=== PATIENT | female | born 1940 | race Caucasian/White ===

== ENCOUNTER 2023-09-25 14:08 | Outpatient (CLI) | payer MEDICARE, BC, SELFPAY ==
--- NOTE | ~2023-09-25 | MM_ITS ---
EXAMINATION: MM screening natalie BI w brain HISTORY: Screening TECHNIQUE: Craniocaudal and mediolateral oblique 3-D tomosynthesis images were obtained and synthetic 2-D images were generated. CAD analysis was submitted and interpreted. COMPARISON: No prior mammogram is available for comparison at this institution. BREAST PARENCHYMAL COMPOSITION: Not dense: There are scattered areas of fibroglandular density. FINDINGS: There is no evidence of suspicious mass, calcification, or architectural distortion to sugg est malignancy in either breast. There has been no suspicious interval change. IMPRESSION: 1. No mammographic evidence of malignancy. 2. Recommend routine screening mammography in one year. BI-RADS Category 1: Negative Reviewed, dictated and finalized at location B.
== END 2023-09-25 14:09 ==
DX: Z12.31 Encounter for screening mammogram for malignant neoplasm of breast (principal)
CPT/HCPCS: 77063; 77067

== ENCOUNTER 2023-12-08 19:12 | Emergency (ER) | payer MEDICARE, SELFPAY ==
--- NOTE | ~2023-12-08 | XR_ITS ---
XR ankle RT min 3V Ordering provider: Baldo Delarosa MD History: . fall . Comparison: None. FINDINGS: BONES: No acute fracture or dislocation. JOINT SPACES: Narrowing of the ankle joint. SOFT TISSUES: Soft tissue swelling over the medial malleolus. IMPRESSION: No acute osseous abnormality of the right ankle. Reviewed, dictated and finalized at location A.
--- NOTE | ~2023-12-08 | CT_ITS ---
CT brain wo con Ordering provider: Baldo Delarosa MD History: 82 years Female with . fall . Comparison: None. Technique: CT of the head without contrast. Radiation reduction technique utilized The dose-length product was 681 mGy-cm. FINDINGS: BRAIN PARENCHYMA AND CSF SPACES: Mild leukoaraiosis and diffuse cortical atrophy. Mild atheromatous d isease. No midline shift, mass effect or hemorrhage. The brain parenchyma and CSF spaces are otherwi se normal. VISUALIZED PARANASAL SINUSES: Well aerated. MASTOIDS: Sclerotic both mastoids. BONES: The bones appear intact. SOFT TISSUES: Visualized nasopharynx is normal. Scalp hematoma in the right occipital area is noted. Otherwise, the superficial soft tissues are normal. IMPRESSION: No acute intracranial findings. Reviewed, dictated and finalized at location A.
--- NOTE | ~2023-12-08 | XR_ITS ---
XR tibia fibula RT 2V Ordering provider: Baldo Delarosa MD History: . fall . Comparison: None. FINDINGS: BONES: No acute fracture or dislocation. JOINT SPACES: Total knee arthroplasty. SOFT TISSUES: Normal. IMPRESSION: No acute osseous abnormality right leg. Reviewed, dictated and finalized at location A.
[2023-12-08 19:16] VITALS: BP 153/56; PULSE 80; RESP 16; TEMP 36.8; O2SAT 98
[2023-12-08 19:39] VITALS: BP 157/40; PULSE 77; RESP 18; TEMP 36.7; O2SAT 97
--- NOTE | 2023-12-08 19:54 | ED.FALL ---
HPI - Fall General Chief Complaint: Fall Stated Complaint: fall, R ankle pain, head injury Time Seen by Provider: 12/08/23 19:48 History of Present Illness HPI Narrative: 82-year-old female with history of chronic kidney disease and chronic cardiac disease on blood thinners of some sort according to the patient. Presents to the emergency department today after a ground level mechanical fall. She fell backwards while hugging her great grandchild. Fell backwards onto her right side head and did not lose consciousness. At the same time something landed onto her right lower leg and is having pain in her ankle. Endorses chronic bilateral lower extremity swelling but there is some more bruising appreciated in the right ankle at this time. Normally ambulatory in a wheelchair. Denies any headache, vision change, nausea, vomiting, loss consciousness, back pain, chest pain, shortness a breath. No weakness fatigue and she is able to move both her ankles equally. Related Data Allergies Allergy/AdvReac Type Severity Reaction Status Date / Time codeine Allergy Rash Verified 12/08/23 19:14 Sulfa (Sulfonamide Allergy Rash Verified 12/08/23 19:14 Antibiotics) Review of Systems Review of Systems: As reviewed above Exam Narrative: GENERAL: [Well-appearing, well-nourished, and in no acute distress.] HEAD: Normocephalic but there is a scalp hematoma on the posterior right-sided occipital region. No active bleeding or skin abrasion, no wound identified. EYES: [PERRLA and EOMI.] ENT: Nares clear, no rhinorrhea or epistaxis. Mucous membranes moist. NECK: Supple. CHEST: [Clear to auscultation. No respiratory distress.] HEART: [Regular rate and rhythm]. No murmur heard. [Normal peripheral pulses.] ABDOMEN: [Soft, nondistended], [nontender], [No rigidity or guarding] EXTREMITIES: Peripheral edema at baseline, right ankle around the medial aspect of the distal tib-fib region has some bruising. Full range of motion with plantar and dorsiflexion eversion and eversion of the ankle. Symmetric strength throughout both arms and legs. No midline cervical thoracic or lumbar spinal tenderness. SKIN: Warm, dry, no rash. NEURO: [No focal deficits]. Alert and oriented [x3.] PSYCH: [Normal mood and affect.] Course Vital Signs Vital signs: Vital Signs Temperature 36.8 C 12/08/23 19:16 Pulse Rate 80 12/08/23 19:16 Respiratory Rate 16 12/08/23 19:16 Blood Pressure 153/56 H 12/08/23 19:16 Pulse Oximetry 98 12/08/23 19:16 Oxygen Delivery Room Air 12/08/23 19:16 Temperature 36.7 C 12/08/23 19:39 Pulse Rate 77 12/08/23 19:39 Respiratory Rate 18 12/08/23 19:39 Blood Pressure 157/40 H 12/08/23 19:39 Pulse Oximetry 97 12/08/23 19:39 Oxygen Delivery Room Air 12/08/23 19:39 MDM - Fall MDM Narrative Medical decision making narrative: 82-year-old female presenting after a ground level mechanical fall on blood thinners. She did hit her head and has a hematoma on the right posterior aspect of her scalp that is not active bleeding or has any skin breakdown. She also had something landed onto her ankle when this happened. She normally walks with a wheelchair. Vital signs reassuring, cardiovascular assessment with good symmetric pulses throughout, chronic edema noted, bruising pre she in the distal right ankle. Full range of motion of the ankle joint. Patient denies any pain at this time and has no symptoms at this time. CT of the head was obtained given that she is on blood thinners and x-rays of the right tib-fib and ankle were obtained. X-rays were independently reviewed by myself I do not appreciate any fractures dislocations subluxations. No soft tissue injury aside from minor swelling obvious on external exam. CT head was interpreted by radiology with no intracranial process. Patient was re-evaluated no pain. She is stable for discharge at this time was provided an Carlos wrap for support. She normally
== END 2023-12-08 21:27 | disposition home or self-care (01) ==
PROVIDERS: Emergency Provider Student in an Organized Health Care Education/Training Program
DX: S09.90XA Unspecified injury of head, initial encounter (principal); S90.01XA Contusion of right ankle, initial encounter; W18.30XA Fall on same level, unspecified, initial encounter
CPT/HCPCS: 70450; 73590; 73610; 99284

== ENCOUNTER 2024-05-07 07:27 | Inpatient (IN) | payer MEDICARE, SELFPAY ==
[2024-05-07] VITALS (15 sets, daily range): BP systolic 96–128; BP diastolic 38–71; PULSE 70–100; RESP 11–20; TEMP 36.3–37.4; O2SAT 86–100; BMI 26.6
--- NOTE | ~2024-05-07 | CT_ITS ---
EXAMINATION: CT chest abdomen pelvis wo con DATE: 05/07/2024 10:39 INDICATION: Pneumonia. Sepsis. TECHNIQUE: Computed tomography (CT) of the chest, abdomen, and pelvis was performed without intraveno us contrast. Automated exposure control and iterative reconstruction technique were employed. The dos e-length product was 504.38 mGy-cm. COMPARISON: None FINDINGS: CHEST CT: The lungs demonstrate mild atelectasis. There is a 3 mm nodule in right upper lobe, likely benign. No pleural effusion. Cardiomegaly is noted. No pericardial effusion. There is a compression fracture of T10 with changes of vertebroplasty. There is mild thoracic spondylosis. ABDOMEN/PELVIS CT: The liver and spleen are normal. There are changes of cholecystectomy. The pancreas, adrenal glands, and kidneys are normal. There is no urolithiasis. There is diverticulosis of the colon without eviden ce of diverticulitis. The appendix is normal. There are no dilated loops of bowel. There are no patho logically enlarged lymph nodes. There is a 15 mm calcified mass at the root of the small bowel mesent delilah. There is a right inguinal hernia containing fat. There is a subcutaneous hematoma in right butto ck. There is an electrode in the right S3 neural foramen. There is a compression fracture of L1 witho ut significant height loss. There is mild lumbar spondylosis. IMPRESSION: 1. L1 compression fracture, likely acute or subacute. 2. 15 mm calcified mass at the root of the small bowel mesentery, which may be sclerosing mesenteriti s or carcinoid. 3. Subcutaneous hematoma in the right buttock. Reviewed, dictated and finalized at location B. IMPRESSION: 1. L1 compression fracture, likely acute or subacute. 2. 15 mm calcified mass at the root of the small bowel mesentery, which may be sclerosing mesenteritis or carcinoid. 3. Subcutaneous hematoma in the right buttock.
--- NOTE | ~2024-05-07 | XR_ITS ---
EXAMINATION: XR hip RT 2V w AP pelvis DATE: 05/07/2024 08:47 INDICATION: Right hip pain. Fall. TECHNIQUE: An anteroposterior view of the pelvis and 2 views of right hip were obtained. COMPARISON: None. FINDINGS: There is lumbar levocurvature and at least mild spondylosis. No fracture. There is mild ost eoarthritis of the hips. Electrode overlies the sacrum on the right. IMPRESSION: 1. Mild osteoarthritis of the hips. Reviewed, dictated and finalized at location B.
--- NOTE | ~2024-05-07 | XR_ITS ---
XR chest 1V Ordering provider: Lanre Dumont MD History: 83 years Female with . Fall . Comparison: None. FINDINGS: MEDIASTINUM: The cardiac silhouette is not enlarged. Congestive yuriy. LUNGS: No pneumothorax. Opacification in the left lung base seen suggestive of atelectasis versus pne umonia with pleural effusion. OTHER: No free air under the diaphragm. Vertebroplasty is seen in T10. Degenerative changes of the sp ine. IMPRESSION: Left basilar atelectasis versus pneumonia with pleural effusion. Reviewed, dictated and finalized at location A.
--- NOTE | ~2024-05-07 | CT_ITS ---
EXAMINATION: CT cervical spine wo con DATE: 05/07/2024 08:31 INDICATION: Neck injury. Fall. TECHNIQUE: Computed tomography (CT) of the cervical spine was performed without intravenous contrast. Automated exposure control and iterative reconstruction technique were employed. The dose-length pro duct was 180.18 mGy-cm. COMPARISON: None FINDINGS: Alignment is normal. Vertebral body heights are normal. There is severely decreased disc he ight at C2-C3. There is severely decreased disc height at C3-C4 with interbody fusion. There is sever steven decreased disc height at C4-C5, moderately decreased disc height at C5-C6, and severely decreased disc height at C6-C7. The following disc levels are specifically discussed: C2-C3: There is mild right and moderate left uncovertebral joint osteoarthritis. There is mild right and severe left facet joint osteoarthritis. There is mild left neural foraminal stenosis. There is no central canal stenosis. C3-C4: There is mild right and moderate left uncovertebral joint hypertrophy. There is mild bilateral facet joint hypertrophy. There is mild right and moderate left neural foraminal stenosis. There is m ild central canal stenosis. C4-C5: There is severe right and moderate left uncovertebral joint osteoarthritis. There is severe ri ght and mild left facet joint osteoarthritis. There is mild bilateral neural foraminal stenosis. Ther e is mild central canal stenosis. C5-C6: There is severe bilateral uncovertebral joint osteoarthritis. There is severe bilateral facet joint osteoarthritis. There is mild bilateral neural foraminal stenosis. There is mild central canal stenosis. C6-C7: There is severe bilateral uncovertebral joint osteoarthritis. There is moderate right and mild left facet joint osteoarthritis. There is mild bilateral neural foraminal stenosis. There is mild ce ntral canal stenosis. C7-T1: There is no uncovertebral joint osteoarthritis. There is severe right and mild left facet join t osteoarthritis. There is mild right neural foraminal stenosis. There is no central canal stenosis. IMPRESSION: 1. No fracture. 2. Severe cervical spondylosis. Reviewed, dictated and finalized at location B.
--- NOTE | ~2024-05-07 | CT_ITS ---
CT brain wo con Ordering provider: Lanre Dumont MD History: 83 years Female with . Fall on xarelto . Comparison: December 08, 2023 Technique: CT of the head without contrast. Radiation reduction technique utilized.The dose-length pr oduct was 605.33 mGy-cm. FINDINGS: BRAIN PARENCHYMA AND CSF SPACES: Mild leukoaraiosis and diffuse cortical atrophy. Mild atheromatous d isease. No midline shift, mass effect or hemorrhage. The brain parenchyma and CSF spaces are otherwi se normal. VISUALIZED PARANASAL SINUSES: Well aerated. MASTOIDS: Sclerotic both mastoid air cells. BONES: The bones appear intact. SOFT TISSUES: Visualized nasopharynx is normal. Superficial soft tissues are normal. IMPRESSION: No acute intracranial findings. Reviewed, dictated and finalized at location A.
--- OUTSIDE RECORDS SUMMARY | 2024-05-07 07:59 | XMS_ITS | Continuity of Care Document ---
Author Organization [facility] Address [address] [place] [address] Phone Care Team Providers Care Study Assistant Name Role Phone Reymundo JACKY Sy Unavailable Unavailable Allergies, Adverse Reactions, Alerts Substance Reaction Status Criticality tramadol Active No Information caffeine Active No Information blue dye Active No Information red dye Active No Information Sulfa (Sulfonamide Antibiotics) Unknown Active No Information Medications Medication Instructions Dosage Effective Dates (start - stop) Status Comments nabumetone 500 mg tablet take 1 tablet by oral route 2 times every day 500 MG - Active hydrocodone 5 mg-acetaminophen 325 mg tablet take 1 - 2 Tablet by Oral route every 8 hours - Active Sixty lisinopril 2.5 mg tablet - Active pravastatin 10 mg tablet - Active Calcium 500 500 mg calcium (1,250 mg) chewable tablet - Active potassium acetate (bulk) 100% powder - Active iron ER 159 mg (45 mg iron) tablet,extended release - Active melatonin 1 mg tablet - Active Procedures Procedure Date Knee Xray 3 Views Office/outpatient visit,est, mod 2022 Knee Xray 3 Views Postop followup visit Postop followup visit Knee Xray 3 Views Postop followup visit Knee Xray 3 Views Knee Total Arthroplasty Arthroplasty, Total Knee Office/outpatient visit,est, mod 2022 Knee Xray 3 Views Office/outpatient visit,est, mod 2018 Postop followup visit Percutaneous Vertebral Augmentation Incl udbettie Cavi Office/outpatient visit,new, mod 2018 Office/outpatient visit,est, mod 2012 X-ray exam of knee, 3 views Office/outpatient visit,new, mod 2012 Drain/Inj Major Joint/Bursa(Shldr, Hip, Knee, Subacrom Bursa) Decadron Advance Directives Directive Yes / No Effective Date File Name No Information Encounters Encounter Description Practice Location Reason(s) For Visit Diagnoses Date Provider Providers Copied on Encounter Office/outpa tient visit,est, mod [facility], [address] [place] [address], [id number], tel:[phone] [facility] knee (chief complaint) Pain in right kneeBody mass index (BMI) 31.0-31.9, adultEncounter for exam of blood pressure w/o abnormal findingsPresence of right artificial knee joint Oct- 3 Reymundo Dan. [address] [place] [address], [id number] , [place]. tel:[phone] Referring Provider: Sy Dwyer, [address] [place], [address] . tel:[phone] [facility], [address] [place] [address], [id number], tel:[phone] [facility] No Information 3 Reymundo Dan. [address] [place] [address], [id number] , [place]. tel:[phone] Referring Provider: Ramin Bowman, [address] [place] [address], [id number] . tel:[phone] [facility], [address] [place] [address], [id number], tel:[phone] [facility] ankle (chief complaint) Presence of right artificial knee joint 3 Reymundo Dan. [address], [place], [id number] , . tel:[phone] Referring Provider: Sy Dwyer, [address] [place], [address] . tel:[phone] [facility], [address] [place] [address], [id number], tel:[phone] [facility] knee (chief complaint) Postoperative wound infection 3 Reymundo Dan. [address], [place], [id number] , [place]. tel:[phone] Referring Provider: Sy Dwyer, [address] [place], [address] . tel:[phone] [facility], [address] [place] [address], [id number], tel:[phone] [facility] No Information 3 Jairo Faustin. [address] [place] [address], [id number] , [place]. tel:[phone] [facility], [address] [place] [address], [id number], [place] tel:[phone] [facility] knee (chief complaint) Pain in right kneeStatus post total right knee replacement 3 Reymundo Dan. [address], [place], [id number] , . [phone] Referring Provider: Sy Dwyer, [address] [place], [address] . tel:[phone] [facility], [address] [place] [address], [id number], [place] tel:[phone] [facility] No Information 3 Reymundo Sy. [address] [place] [address], [id number] , . tel:[phone] Referring Provider: Ramin Bowman, [address] [place], [address] . tel:[phone] [facility], [address] [place] [address], [id number], tel:[phone] [facility] No Information 3 Jairo Faustin. [address] [place] [address], [id number] , . tel:[phone] Referring Provider: Ramin Bowman, [address] [place] [address], [id number] . tel:[phone] [facility], [address] [place] [address], [id number], tel:[phone] [facility] No Information 3 Reymundo Dan. [address] [place] [address], [id number] , . tel:[phone] Referring Provider: Ramin Bowman, [address] [place] [address], [id number] . tel:[phone] [facility], [address] [place] [address], [id number], tel:[phone] [facility] Primary osteoarthritis of right knee 3 Jairo Faustin. [address] [place] [address], [id number] , [place]. tel:[phone] Office/outpa tient visit,est, mod [facility], [address] [place] [address], [id number], tel:[phone] [facility] knee (chief complaint) Primary osteoarthritis of right kneePain in right knee Apr- 3 Reymundo Dan. [address] [place] [address], [id number] , [place]. tel:[phone] Referring Provider: Sy Dwyer, [address] [place] [address], [id number] . tel:[phone] Office/outpa tient visit,est, mod [facility], [address] [place] [address], [id number], tel:[phone] [facility] lumbar spine (chief complaint) Closed compression fracture of thoracic vertebra, 9 Vimal Villasenor. [address], [place], [id number] , . tel:[phone] [facility], [address] [place] [address], [id number], tel:[phone] [facility] lumbar spine (chief complaint) Closed compression fracture of thoracic vertebra, May-0 9 Vimal Villasenor. [address], [place], [id number] , . tel:[phone] [facility], [address] [place] [address], [id number], tel:[phone] [facility] No Information 9 Vimal Villasenor. [address], [place], [id number] , . tel:[phone] Referring Provider: Hamilton Riley, [address] [place] [address], [id number] . tel:[phone] Office/outpa tient visit,[facility], [address] [place] [address], [id number], tel:[phone] [facility] thoracic spine pain (chief complaint) Midline low back pain, with sciatica presence unspecifiedClosed compression fracture of thoracic vertebra, initial encounterClosed compression fracture of thoracic vertebra,Closed compression fracture of thoracic vertebra,Closed compression fracture of thoracic vertebra,Closed compression fracture of thoracic vertebra,Encounte r for other preprocedural examinationCollap sed vertebra of thoracic region, initial encounter for fracture 9 Rubén Strickland. [address] [place] [address], [id number] , [place]. tel:[phone] Office/outpa tient visit,[facility], [facility], [address] [place] [address], [id number], tel:[phone] [facility] Arthritis Knee Localized Primary (osteoarthritis)M ed Meniscus/Derang(O ld) - Unspecified 3 Marco A goins. [address] [place] [address], [id number], [place]. tel:[phone] Office/outpa tient visit,new, [facility], [address], [place], [id number], tel:[phone] [facility] Pain In LimbArthritis Knee Localized Primary (osteoarthritis) 3 Marco A Ojeda briseida. [address] [place], [address], . tel:[phone] Referring Provider: Avinash Adrian, [address] [place], [address] . tel:[phone] Family History Family Member Type Diagnosis Age At Onset Problem (finding) Family history of coronary arteriosclerosis Problem (finding) Family history of strok e Problem (finding) Family history of Cance r, unknown Payers Payer name Insurance type Covered constitution party ID Authoriza tion(s) [place] [id number] BCBS [facility] [id number] Social History Type Description Quantity Date Captured Comments Alcohol Use Details Unknown Caffeine Use Details Unknown Tobacco Use Status Current non-smoker Smoking Status Never smoker Non-Smoking Tobacco Use Details : No Details Available : No Details Available Sex Female Vital Signs Date / Time: Height Weight BMI Pulse Rate Blood Pressure Temperature Respiratory Rate Body Surface Area Head Circumference Head Circ. Percentile Wt./Seamus. Percentile BMI percentile Pulse Ox Inhaled Ox 2:48 PM 62.00 in 78.925 kg (174.00 lbs) 31.8 2 kg/m eter (2) 83 /min 81/50 mm[Hg] Chief Complaint And Reason For Visit From encounter dated '11/03/2022 14:00'. knee (chief complaint) Reason For Referral Reason For Referral No Information Plan Of Treatment Date Type Action Status Goal Tobacco cessation counseling completed Goal Tobacco cessation counseling completed Goal Tobacco cessation counseling completed Goal Tobacco cessation counseling completed Goal Tobacco cessation counseling completed Goal Tobacco cessation counseling completed Future Order: Radiology Order Kn ee Xray 3 Views ([id number]), Ordered on: Ordered Future Order: Radiology Order Kn ee Xray 3 Views ([id number]), Ordered on: Ordered Future Order: Radiology Order Kn ee Xray 3 Views ([id number]), Ordered on: Ordered History Of Present Illness Encounter Date Complaint History Of Prese nt Illness knee ankle knee knee knee lumbar spine Ms Delong is a 8 6 year old female who complains of lumbar spine. She presents with pain. She states that the symptoms have been chronic non-traumatic. The symptoms occur constantly. The problem is worse. Currently the patient states that the symptoms are moderate-severe. The pain is described as aching, discomforting and throbbing. The patient is experiencing pain in the following location: lower back. The symptoms are aggravated by daily activities, extension, flexion and walking. Dianne states that the symptoms are relieved by rest and sitting. lumbar spine Ms Delong is a 8 6 year old female who complains of lumbar spine. She presents with pain. She states that the symptoms have been chronic non-traumatic. The symptoms occur constantly. The problem is worse. Currently the patient states that the symptoms are moderate-severe. The pain is described as aching, discomforting and throbbing. The patient is experiencing pain in the following location: lower back. The symptoms are aggravated by daily activities, extension, flexion and walking. Dianne states that the symptoms are relieved by rest and sitting. thoracic spine pain She presents with pain. She states that the symptoms have been chronic non-traumatic. The symptoms occur constantly. The problem is worse. Currently the patient states that the symptoms are severe. The pain is described as aching, burning and shooting. The patient is experiencing pain in the following location: mid back. The symptoms are aggravated by lifting. Dianne states that the symptoms are relieved by lying down. Pertinent negatives include bladder, bowel, or sexual dysfunction. Functional Status Date Functional Assessmen t No Information Instructions Date Instruction Additional Infor steven Giving encouragement to exercise Related to Blood pressure check Giving encouragement to exercise Related to Body mass index [BMI] 31.0-31.9, adult Assessments Type Assessment Date assessment Pain in right knee assessment Body mass index [BMI] 31.0-31.9, adult assessment Blood pressure check assessment Presence of right artificial kne e joint Patient Care Teams Name Effective Dates (start - stop) Status Members No Information
--- OUTSIDE RECORDS SUMMARY | 2024-05-07 07:59 | XMS_ITS | Referral Summary ---
Author Organization [facility] [address] [facility] [address] Address [address] [place] [address] Care Team Providers Care Mobility Scooter Repairer Name Role Phone Amalia Leyva NP Primary Care Pro vider Encounters Date Type Department Care Team Description 02/15/2024 10:30 AM HOBBING MACHINE OPERATOR Office Visit [facility] [address] [place] [address] Daiana Hearn NP Paroxysmal atrial fibrillation (HCC) (Primary Dx); Chronic anticoagulation from Last 3 Months Allergies Active Allergy Reactions Criticality Noted Date Comments Codeine Rash Medium 08/18/2023 Medications FeroSuL 325 mg (65 mg iron) tablet 08/03/2023 Active furosemide (LASIX) 40 mg tablet 07/24/2023 Active metoprolol XL (TOPROL-XL) 25 mg extended release tablet 08/14/2023 Acti ve nabumetone (RELAFEN) 750 mg tablet 08/17/2023 Active pravastatin (PRAVACHOL) 10 mg tablet 08/08/2023 Active triamterene-hyd roCHLOROthiazid e 37.5-25 mg per capsule TAKE 1 CAPSULE BY MOUTH ONCE DAILY IN THE MORNING 05/15/2023 Active rivaroxaban (XARELTO) 20 mg tablet Take 1 tablet (20 mg total) by mouth daily with dinner 30 tablet 11 09/28/2023 Active bumetanide (BUMEX) 1 mg tablet 02/13/2024 Active calcium amino acid chelate 200 mg calcium tablet Take by mouth Active potassium gluconate 550 mg (90 mg) tablet 1 tablet (550 mg total) Active aspirin 81 mg enteric coated tablet Take 1 tablet (81 mg total) by mouth daily Active loratadine (CLARITIN) 10 mg tablet Take 1 tablet (10 mg total) by mouth daily Active Active Problems Problem Noted Date Diagnosed Date Palpitations 08/18/2023 Hypertension 08/18/2023 Hyperlipidemia 08/18/2023 Social History Tobacco Use Types Packs/Day Years Used Date Smoking Tobacco: Never Tobacco Cessation:Counseling Given: Not Answered Comments Unknown Sex and Gender Information Value Date Recorded Sex Assigned at Not on file Legal Sex Female 11:32 AM CDT Gender Identity Not on file Sexual Orientation Not on file Last Filed Vital Signs Vital Sign Reading Time Taken Comments Blood Pressure 118/60 02/15/2024 10:40 AM HOBBING MACHINE OPERATOR Pulse 88 02/15/2024 10:40 AM HOBBING MACHINE OPERATOR Temperature - - Respiratory Rate - - Oxygen Saturation 98% 02/15/2024 10:40 AM HOBBING MACHINE OPERATOR Inhaled Oxygen Concentration - - Weight 66.2 kg (146 lb) 02/15/2024 10:40 AM HOBBING MACHINE OPERATOR Height 154.9 cm (5' 1) 02/15/2024 10:40 AM HOBBING MACHINE OPERATOR Body Mass Index 27.59 02/15/2024 10:40 AM HOBBING MACHINE OPERATOR Plan of Treatment Not on file Insurance MEDICARE [facility] MEDICARE SUPPLEMENT Care Teams Mobility Scooter Repairer Relationship Specialty Start Date End Date Amalia Leyva NP [address] [place] [address] PCP - General Nurse Practitioner 06/05/23
--- OUTSIDE RECORDS SUMMARY | 2024-05-07 07:59 | XMS_ITS | Clinical Summary ---
Author Organization [facility] [address] Address [address] [place] [address] Care Team Providers Care Hospice Nurse Name Role Phone Amalia Leyva NP Primary Care Pro vider Allergies Active Allergy Reactions Criticality Noted Date [...] Date Palpitations 08/18/2023 Hypertension 08/18/2023 Hyperlipidemia 08/18/2023 Encounters Date Type Department Care Team Description 02/15/2024 10:30 AM OVERAGE SHORTAGE AND DAMAGE CLERK Office Visit [facility] Cardiology [address] [place] [address] Daiana Hearn NP Paroxysmal atrial fibrillation (HCC) (Primary Dx); Chronic anticoagulation from Last 3 Months Surgical History Surgery Date Site/Laterality Comments CHOLECYSTECTOMY TONSILLECTOMY Medical History Medical History Date Comments CHF (congestive heart failure) (HCC) Family History Medical History Relation Name Comments Emphysema Father Stroke Mother Relation Name Status Comments Father Mother Social History Tobacco Use Types Packs/Day Years Used Date Smoking Tobacco: Never Tobacco Cessation:Counseling Given: Not Answered Comments Unknown Sex and Gender Information Value Date Recorded Sex Assigned at Not on file Legal Sex Female 11:32 AM CDT Gender Identity Not on file Sexual Orientation Not on file Obstetrics History Last Filed Vital Signs Vital Sign Reading Time Taken Comments Blood Pressure 118/60 02/15/2024 10:40 AM OVERAGE SHORTAGE AND DAMAGE CLERK Pulse 88 02/15/2024 10:40 AM OVERAGE SHORTAGE AND DAMAGE CLERK Temperature - - Respiratory Rate - - Oxygen Saturation 98% 02/15/2024 10:40 AM OVERAGE SHORTAGE AND DAMAGE CLERK Inhaled Oxygen Concentration - - Weight 66.2 kg (146 lb) 02/15/2024 10:40 AM OVERAGE SHORTAGE AND DAMAGE CLERK Height 154.9 cm (5' 1) 02/15/2024 10:40 AM OVERAGE SHORTAGE AND DAMAGE CLERK Body Mass Index 27.59 02/15/2024 10:40 AM OVERAGE SHORTAGE AND DAMAGE CLERK Plan of Treatment Health Maintenance Due Date Last Done Comments Depression Screening 1941 Fall Risk Assessment 1941 Osteoporosis Screening-Bone Density Scan 1941 Hepatitis B Screening 12/26/1959 Pneumococcal vaccine 65+ (1 of 1 - PCV) 12/26/1991 Zoster Vaccine (1 of 2) 12/26/1991 Well Visit 65+ 2006 DTaP/Tdap/Td Vaccine (2 - Td or Tdap) 10/03/202307/2013 Influenza Vaccine (#1) 2023 Insurance MEDICARE [facility] MEDICARE SUPPLEMENT Member Subscriber Plan / Payer (Ef fective 2020-Present) Name:Dianne Delong Relation to Subscriber:Self Name:Dianne Delong Payer ID:[id number] Group ID:[id number] Type:COMMERCIAL Address: [facility] [address] [place] [id number] Care Teams Hospice Nurse Relationship Specialty Start Date End Date Amalia Leyva NP [address] [place] [address] PCP - General Nurse Practitioner 06/05/23
--- NOTE | 2024-05-07 08:16 | ECG_ITS ---
Test Date: 2024-05-07 08:56:36 Measurements Intervals [place] Rate: 93 P: 255 WY: 340 QRS: -26 QRSD: 95 T: 47 QT: 383 QTc: 479 Interpretive Statements SINUS RHYTHM BORDERLINE LEFT AXIS DEVIATION [QRS AXIS < -20] LOW QRS VOLTAGE IN PRECORDIAL LEADS [QRS DEFLECTION < 1.0 mV IN CHEST LEADS] INCOMPLETE RIGHT BUNDLE BRANCH BLOCK [90+ ms QRS DURATION, TERMINAL R IN V1/V2, 40+ ms S IN I/aVL/V4/V5/V6] ST DEVIATION AND MODERATE T-WAVE ABNORMALITY, CONSIDER ANTERIOR ISCHEMIA [-0.1+ mV T WAVE IN V3/V4] No previous ECG available for comparison Electronically Signed On 05-07-2024 14:56:23 CDT by Martell Palomo M.D.
--- NOTE | 2024-05-07 08:31 | PCRCNOTE ---
[facility] delayed pt in xray and Cat Scan
[2024-05-07] MEDS: HYDROcodone/acetaminophen (*CRX) 5-325 MG TABLET 1 TAB PO (08:45)
[2024-05-07 09:05] LABS: Basophils Percent Auto 0.3 % (0.2-1.2); Eosinophils Absolute Auto 0.7 K/mm3 (0-0.3); Hematocrit 32.6 % (37.0-47.0); Hemoglobin 10.5 g/dL (12.0-15.0); Immature Granulocyte Absolute 0.11 K/mm3 (0.00-0.031); Immature Granulocyte Percent A 0.8 % (0-0.5); Lymphocytes Percent Auto 2.8 % (18.3-44.2); Mean Corpuscular HGB Conc 32.2 g/dl (32-36); Mean Corpuscular Hemoglobin 27.9 pg (26-34); Mean Corpuscular Volume 86.5 fl (80-100); Mean Platelet Volume 10.2 fl (7.4-10.4); Monocytes Absolute Auto 0.6 K/mm3 (0.1-0.6); Monocytes Percent Auto 4.2 % (2.6-8.5); Neutrophils Absolute Auto 12.5 K/mm3 (1.3-6.7); Neutrophils Percent Auto 86.9 % (45.5-73.1); Platelet Count Result 361 k/mm3 (150-375); Red Blood Count 3.77 M/mm3 (4.2-5.4); Red Cell Distribution Width 13.5 % (11.5-14.5); White Blood Count 14.4 K/mm3 (4.5-10.0)
[2024-05-07 09:14] LABS: Fractional Inspired Oxygen 21 %; HCO3 VBG 29.8 mEq/l (24.0-30.0); PCO2 VBG 44.4 mmHg (42.0-48.0)
[2024-05-07 09:17] LABS: Device ROOM AIR; PO2 VBG < 27.0 mmHg (35.0-45.0); pH VBG 7.445 (7.300-7.400)
[2024-05-07 09:18] LABS: Lactic Acid Reflex 1.2 mmol/L (0.7-2.0)
[2024-05-07 09:19] LABS: Alanine Aminotransferase 28 U/L (6-35); Albumin Level 4.3 g/dL (3.5-5.1); Alkaline Phosphatase 132 U/L (38-126); Anion Gap 10 mmol/L (4-12); Aspartate Amino Transferase 40 U/L (14-36); Bilirubin,Total 0.7 mg/dL (0.2-1.3); Blood Urea Nitrogen 64 mg/dL (7-17); Calcium 9.7 mg/dL (8.4-10.2); Carbon Dioxide 34 mmol/L (22-30); Chloride 94 mmol/L (98-107); Estimated CRCL calculation 15 ml/min; Estimated Glomerular Filt Rate 19; Glucose 151 mg/dL (65-110); Potassium 3.3 mmol/L (3.4-5.0); Sodium 138 mmol/L (137-145)
[2024-05-07 09:40] LABS: Influenza A QL RT-PCR Negative (Negative); Influenza B QL RT-PCR Negative (Negative); RSV RNA, RT-PCR Negative (Negative); SARS-CoV-2 RNA PCR Negative (Negative)
[2024-05-07 09:50] LABS: Add Urine Microscopic? YES; Appearance Urine Cloudy (Clear); Bacteria Urine 1+ /hpf; Bilirubin Urine 1+ (Negative); Blood Urine 3+ (Negative); Color Urine Dark Yellow (Yellow); Glucose Urine UA Negative (Negative); Ketones Urine Trace mg/dL (Negative); Leukocyte Esterase Ur 1+ LEU/UL (Negative); Need Manual Microscopic Reviewed; Nitrate Urine Negative (Negative); Protein Urine Trace mg/dL (Negative); RBC Urine 21-50 /hpf (0-2); Specific Grav Ur 1.016 (1.001-1.035); Squamous Epithelial Cell Urine Many /hpf (Few); Urobilinogen Urine 0.2 mg/dL (<2.0)
--- NOTE | 2024-05-07 13:16 | ED_ITS ---
HPI - General Adult General Chief complaint: Fall Stated complaint: glf, R shoulder pain History of Present Illness HPI narrative: This is an 83-year-old female presenting after a ground level fall. Patient was trying to use the restroom when she fell forward when her walker slipped away. He is unsure if she had but she denies loss of consciousness. She is on Xarelto. She is currently complaining of pain to her right hip, and both knees. She says she has felt more weak than usual the last 2 days. She denies fevers chills chest pain difficulty breathing abdominal pain or urinary symptoms. She has recently completed treatment for UTI. Related Data Allergies Allergy/AdvReac Type Severity Reaction Status Date / Time codeine Allergy Rash Verified 12/08/23 19:14 Sulfa (Sulfonamide Allergy Rash Verified 12/08/23 19:14 Antibiotics) Exam 2 Narrative: APPEARANCE: No apparent distress. Head: atraumatic. EYES: EOMI, NOSE: Atraumatic NECK: Trachea midline RESPIRATORY: No increased rate of breathing clear to auscultation CARDIOVASCULAR: RRR, no peripheral edema, +2 pulses in all extremities ABDOMINAL: Non-distended soft nontender no guarding or rebound MUSCULOSKELETAl: Head to toe trauma exam performed with no obvious deformities. No pain in the hips with flexion and internal external rotation. Tenderness palpation in the lumbar region. NEURO: Alert. Moving 4/4 extremities SKIN:: Warm, dry. Normal color PSYCHIATRIC: Normal affect Course Vital Signs Vital signs: Vital Signs Temperature 97.9 F 05/07/24 07:31 Pulse Rate 100 05/07/24 07:31 Respiratory Rate 16 05/07/24 07:31 Blood Pressure 128/71 05/07/24 07:31 Pulse Oximetry 94 05/07/24 07:31 Oxygen Delivery Room Air 05/07/24 07:31 Temperature 97.9 F 05/07/24 07:31 Pulse Rate 74 05/07/24 12:00 Respiratory Rate 14 05/07/24 12:00 Blood Pressure 104/66 05/07/24 12:00 Pulse Oximetry 96 05/07/24 12:00 Oxygen Delivery Nasal Cannula 05/07/24 11:41 Oxygen Flow Rate 2 05/07/24 11:41 Medical Decision Making [facility] Narrative Medical decision making narrative: -Course: 83-year-old female presenting after ground level fall. Trauma workup significant for a mild acute versus subacute L1 compression fracture. Patient's neurologic exam is normal. She does have some mild back pain but is able to move without difficulty. Hematoma in the right buttock which likely explains her hip pain. White count was elevated 14.4. Workup was expanded to include infectious causes of fall. Chest x-ray showed left basilar infiltrates versus atelectasis. Urine was a contaminated catch with many squamous cells. I recommended straight cath to rule out urinary tract infection and the patient and her family members refused. They understand that if she has a urinary tract infection she could become septic which is a life-threatening condition. Both the patient and her son have voiced their understanding of the risks. We were planning on discharging the patient back to the [facility], However before the patient was discharged I ambulated her around the emergency department to make sure that she could tolerate her back pain. During that time she desaturated into the mid 80s. She was incredibly winded by time she was helped back to bed by the nursing staff. Given her elevated white count, difficulty breathing and possible infiltrates on x-ray/CT should be started on antibiotics will cover both pneumonia and urinary tract infection. Patient admitted for further management. There was incidental finding of a calcified nodule at the base of the small bowel mesentery. Differential including mesenteric scleritis versus carcinoid. I discussed this with the patient and family and patient has no interest in being further evaluated for cancer. No abdominal pain or GI sxs. -DDX includes but is not limited to: Soft tissue injury bony injury, intracranial hemorrhage, sepsis UTI pneumonia dehydration -Co-morbidities complicating care: AFib on Xarelto, CKD stage IV -Social determinants of health: intermediate resident Vital Signs Vital Signs: Vital Signs Temperature 97.9 F 05/07/24 07:31 Pulse Rate 100 05/07/24 07:31 Respiratory Rate 16 05/07/24 07:31 Blood Pressure 128/71 05/07/24 07:31 Pulse Oximetry 94 05/07/24 07:31 Oxygen Delivery Room Air 05/07/24 07:31 Temperature 97.9 F 05/07/24 07:31 Pulse Rate 74 05/07/24 12:00 Respiratory Rate 14 05/07/24 12:00 Blood Pressure 104/66 05/07/24 12:00 Pulse Oximetry 96 05/07/24 12:00 Oxygen Delivery Nasal Cannula 05/07/24 11:41 Oxygen Flow Rate 2 05/07/24 11:41 Lab Data 05/07/24 08:57 05/07/24 08:57 Labs: Lab Results 05/07/24 05/07/24 Range/Units 08:57 09:26 WBC 14.4 H (4.5-10.0) K/mm3 RBC 3.77 L (4.2-5.4) M/mm3 Hgb 10.5 L (12.0-15.0) g/dL Hct 32.6 L (37.0-47.0) % MCV 86.5 (80-100) fl MCH 27.9 (26-34) pg MCHC 32.2 (32-36) g/dl RDW 13.5 (11.5-14.5) % Plt Count 361 (150-375) k/mm3 MPV 10.2 (7.4-10.4) fl Immature Gran % (Auto) 0.8 H (0-0.5) % Neut % (Auto) 86.9 H (45.5-73.1) % Lymph % (Auto) 2.8 L (18.3-44.2) % Cataño % (Auto) 4.2 (2.6-8.5) % Eos % (Auto) 5.0 H (0-4.4) % Baso % (Auto) 0.3 (0.2-1.2) % Lymph # (Auto) 0.40 L (0.9-3.2) K/mm3 [place]ata[place] # (Auto) 0.6 (0.1-0.6) K/mm3 Eos # (Auto) 0.7 H (0-0.3) K/mm3 Baso # (Auto) 0.0 (0.0-0.1) K/mm3 Abs Immat Gran (auto) 0.11 H (0.00-0.031) K/mm3 Absolute Neuts (auto) 12.5 H (1.3-6.7) K/mm3 Absolute Nucleated RBC 0.000 (0.0-0.012) K/mm3 Nucleated RBC % 0.0 (0.0-0.2) % Sodium 138 (137-145) mmol/L Potassium 3.3 L (3.4-5.0) mmol/L Chloride 94 L (98-107) mmol/L Carbon Dioxide 34 H (22-30) mmol/L Anion Gap 10 (4-12) mmol/L BUN 64 H (7-17) mg/dL Creatinine 2.43 H (0.7-1.0) mg/dL Estim Creat Clear Calc 15 ml/min Estimated GFR 19 L (59 - ) Glucose 151 H (65-110) mg/dL Lactic Acid 1.2 (0.7-2.0) mmol/L Calcium 9.7 (8.4-10.2) mg/dL Total Bilirubin 0.7 (0.2-1.3) mg/dL AST 40 H (14-36) U/L ALT 28 (6-35) U/L Alkaline Phosphatase 132 H (38-126) U/L Total Protein 8.0 (6.3-8.2) g/dL Albumin 4.3 (3.5-5.1) g/dL Urine Color Dark yellow (Yellow) Urine Appearance Cloudy H (Clear) Urine pH 5.0 (5.0-9.0) Ur Specific [place] 1.016 (1.001-1.035) Urine Protein Trace (Negative) mg/dL Urine Glucose (UA) Negative (Negative) mg/dL Urine Ketones Trace H (Negative) mg/dL Ur Blood (Man) 3+ H (Negative) Urine Nitrate Negative (Negative) Urine Bilirubin 1+ H (Negative) Urine Urobilinogen 0.2 (<2.0) mg/dL Add Ur Microanalysis Reviewed Leukocyte Esterase Rfl 1+ H (Negative) SWAPNA/UL Urine RBC 21-50 H (0-2) /hpf Urine WBC 11-20 H (0-3) /hpf Ur Squamous Epith Cells Many H (Few) /hpf Urine Bacteria 1+ H /hpf Urine Casts 11-20 Influenza A (RT-PCR) Negative (Negative) Influenza B (RT-PCR) Negative (Negative) RSV (RT-PCR) Negative (Negative) SARS-CoV-2 RNA (RT-PCR) Negative (Negative) ABG Data ABG results: 05/07/24 09:11 VBG pH 7.445 H* VBG pCO2 44.4 VBG pO2 < 27.0 L VBG HCO3 29.8 O2 Delivery Device Room air O2 Liters/Min Not Reportable FiO2 21 Discharge Plan Discharge Clinical Impression: Fall, Hematoma, Compression fracture of L1 vertebra, Hypoxia Patient Disposition: Home, Self-Care Condition: Stable Instructions: Antibiotic Form, Vertebral Compression Fracture (ED) Additional Instructions: Dianne was seen after a fall. She has a mild L1 compression fracture. She can take Tylenol for pain. Use oxycodone for breakthrough pain.. Please continue to monitor for signs of urinary tract infection. She refused to let us straight catheter and we were unable to get a adequate sample. She was incidentally found to have a calcified mass in her mesentery. Differential includes sclerosing mesenteritis versus carcinoid. I discussed the results with the patient and she has no interest in further workup. Patient Language: Chinese Prescriptions: New acetaminophen 500 mg tablet 1,000 mg PO TID PRN (Reason: [place]) 7 Days Qty: 42 0RF oxycodone 5 mg tablet 5 mg PO Q6H PRN (Reason: pain) Qty: 30 0RF Follow-up/Referrals: UNKNOWN,DOCTOR [Primary Care Provider] -
[2024-05-07] MEDS: POTASSIUM CHLORIDE 20 MEQ PACKET (FOR LIQUID) 40 MEQ PO (14:16)
[2024-05-07] MEDS: DOXYCYCLINE 100 MG/NS 100 ML 100 MG/100 ML BAG IVPB (15:53)
--- NOTE | 2024-05-07 16:43 | ADMGEN ---
This patient, Dianne Delong, was admitted to [facility] Surg Room 332-02. Patient/family oriented to hospital policies and general routines including ID bracelet, bed and alarms, visiting hours, pain management, procedures, bathroom and other care routines, personal items, smoking policy, room service/diet, and visiting hours. Information on how to activate the Rapid Response Team has been discussed. Patient/Family are encouraged to report perceived risks to care and to ask questions if they do not understand what they are told or what they should do.
--- NOTE | 2024-05-07 20:13 | P.HP_ITS ---
H&P: HPI History of Present Illness Date/Time: 05/07/24 20:13 Chief Complaint: Ground level fall Narrative: 83-year-old female presents the hospital after ground level fall complaining pain on her right side and bilateral knees. She is unsure if she hit her head. She does not think she lost consciousness. Patient complains of back pain which is worse with movement and also muscle spasms. She states that pain is better with medications and rest. Patient states that she recently completed antibiotics for UTI. She denies fevers chills nausea or vomiting Lab work in the ED showed leukocytosis of 14.4, hemoglobin 10.5, venous blood gas pH 7.445, pCO2 44.4, PO2 <27, potassium 3.3, carbon dioxide 34, BUN of 64, creatinine of 2.43, GFR 19, UA shows cloudy urine with 1+ leukocyte esterase and many squamous cells will repeat UA. CT head shows no acute findings, CT C-spine shows no acute fractures, CT chest abdomen pelvis showed L1 compression fracture, calcified mass at the root of the small bowel mesentery and subcutaneous hematoma in the right buttock, on x-ray of pelvis patient has implanted device of some sort in her right buttocks. Review of Systems Review of Systems: 12 systems were reviewed and are negativ e except for as per HPI. [facility] Social History Social History Smoking status: Never smoker Alcohol intake: never Substance use: never Do You Feel Safe in your Home?: Yes Lack of Transportation: No Lack of Food: Never True Current Housing: I Have Housing Concerned About Future Housing: No Difficulty Paying Gas/Electric Bills: No Difficulty Paying for Meds: No Currently Unemployed: No Education: Bachelor's Degree Difficulty w/ Childcare or Family Care: No Spiritual care concerns: No Meds Home Medications and Allergies Home Medications ?Medication ?Instructions ?Recorded ?Confirmed ?Type acetaminophen 500 mg tablet 1,000 mg (2 x 500 mg) PO TID PRN 05/07/24 Rx virginia 7 days #42 tabs aspirin 81 mg tablet,delayed 81 mg PO DAILY 05/07/24 05/07/24 History release (Adult Aspirin Regimen) bumetanide 1 mg tablet 1 mg PO DAILY 05/07/24 05/07/24 History calcium carb, citrate, malate 1,200 mg PO DAILY 05/07/24 05/07/24 History ferrous sulfate 325 mg (65 mg 325 mg PO DAILY 05/07/24 05/07/24 History iron) tablet (FeroSul) fluconazole 150 mg tablet 150 mg PO DAILY 05/07/24 05/07/24 History loratadine 10 mg capsule 10 mg PO DAILY 05/07/24 05/07/24 History metoprolol succinate 25 mg 25 mg PO DAILY 05/07/24 05/07/24 History tablet,extended release 24 hr oxycodone 5 mg tablet 5 mg PO Q6H PRN pain #30 tabs 05/07/24 Rx potassium 75 mg tablet 575 mg PO DAILY 05/07/24 05/07/24 History pravastatin 10 mg tablet 10 mg PO DAILY 05/07/24 05/07/24 History rivaroxaban 20 mg tablet (Xarelto) 20 mg PO DAILY 05/07/24 05/07/24 History triamterene 37.5 1 cap PO DAILY 05/07/24 05/07/24 History mg-hydrochlorothiazide 25 mg capsule vitamin B complex 1 cap PO DAILY 05/07/24 05/07/24 History Allergies Allergy/AdvReac Type Severity Reaction Status Date / Time codeine Allergy Rash Verified 12/08/23 19:14 Sulfa (Sulfonamide Allergy Rash Verified 12/08/23 19:14 Antibiotics) Vital Signs Vital Signs - 24 hr 05/07/24 07:31 05/07/24 09:58 05/07/24 10:01 Temperature 97.9 F Pulse Rate 100 91 85 Respiratory Rate 16 12 11 L Blood Pressure 128/71 118/59 L 96/64 L Pulse Oximetry 94 93 90 Oxygen Delivery Room Air Oxygen Flow Rate 05/07/24 10:02 05/07/24 11:00 05/07/24 11:40 Temperature Pulse Rate 77 77 Respiratory Rate 13 11 L Blood Pressure 118/59 L 123/65 Pulse Oximetry 93 95 86 L Oxygen Delivery Room Air Oxygen Flow Rate 05/07/24 11:41 05/07/24 12:00 05/07/24 12:31 Temperature Pulse Rate 74 73 Respiratory Rate 14 13 Blood Pressure 104/66 105/68 Pulse Oximetry 96 96 97 Oxygen Delivery Nasal Cannula Oxygen Flow Rate 2 05/07/24 13:12 05/07/24 14:21 05/07/24 14:31 Temperature Pulse Rate 80 85 76 Respiratory Rate 17 20 12 Blood Pressure 113/49 L 104/48 L 108/47 L Pulse Oximetry 93 98 96 Oxygen Delivery Oxygen Flow Rate 05/07/24 16:03 05/07/24 16:40 Temperature 97.4 F L Pulse Rate 70 89 Respiratory Rate 16 14 Blood Pressure 106/47 L 127/38 L Pulse Oximetry 95 100 Oxygen Delivery Oxygen Flow Rate Exam Narrative: General: well appearing, appears stated age. HEENT: normocephalic, atraumatic. Mucous membranes moist. EOMI, PERRLA, bilateral sclera anicteric, no conjunctival injection. Neck supple without JVD, lymphadenopathy, or bruit. Respiratory: clear to ascultation bilaterally. No rales/rhonic/wheezes. Cardiovascular: Regular rate and rhythm, normal S1-S2 upon ascultation. No murmurs, rubs, or clicks. PMI is nondisplaced, capillary refill less than 3 second. Abdomen: Soft, round, no pulsatile masses, nondistended and nontender. No rebound, no guarding. No CVA tenderness, no hepatosplenomegaly. Bowel sounds present to all four quadrants. No high pitch or tinkling sounds, resonant to percussion. Extremities: No cyanosis, clubbing, or edema present. Pulses are palpable 2/2. Limited range of motion lower extremities due to acute back pain Neuro: Alert and orientated x 4. PERRLA. Cranial nerves 2-12 intact without focal deficit. Skin: Warm, dry, and intact, without rash, erythema, or lesion. Psych: pleasant, cooperative, normal speech, normal affect, no hallucinations, no dysarthia H&P: Results Labs Labs: Short CBC 05/07/24 Range/Units 08:57 WBC 14.4 H (4.5-10.0) K/mm3 Hgb 10.5 L (12.0-15.0) g/dL Hct 32.6 L (37.0-47.0) % Plt Count 361 (150-375) k/mm3 [facility] 05/07/24 08:57 Sodium 138 Potassium 3.3 L Chloride 94 L Carbon Dioxide 34 H BUN 64 H Creatinine 2.43 H Glucose 151 H Calcium 9.7 Liver Function 05/07/24 Range/Units 08:57 Total Bilirubin 0.7 (0.2-1.3) mg/dL AST 40 H (14-36) U/L ALT 28 (6-35) U/L Alkaline Phosphatase 132 H (38-126) U/L Albumin 4.3 (3.5-5.1) g/dL Urine 05/07/24 Range/Units 09:26 Urine Color Dark yellow (Yellow) Urine Appearance Cloudy H (Clear) Urine pH 5.0 (5.0-9.0) Ur Specific [place] 1.016 (1.001-1.035) Urine Protein Trace (Negative) mg/dL Urine Glucose (UA) Negative (Negative) mg/dL Assessment and Plan Assessment and plan (1) Fall: Code(s): W19.XXXA - Unspecified fall, initial encounter Status: Acute Assessment and Plan: Use walker baseline PT OT after neurosurgery evaluation (2) Compression fracture of L1 vertebra: Code(s): S32.010A - Wedge compression fracture of first lumbar vertebra, initial encounter for closed fracture Status: Acute Assessment and Plan: Neurosurgery consult Bed rest until seen by Neurosurgery Patient will likely need a brace Pain management muscle relaxer (3) Hypoxia: Code(s): R09.02 - Hypoxemia Status: Acute Assessment and Plan: CT shows The lungs demonstrate mild atelectasis. There is a 3 mm nodule in right upper lobe, likely benign. Incentive spirometer Recommend follow-up for nodule outpatient Will start on Rocephin and doxycycline for possible pneumonia (4) Cardiomegaly: Code(s): I51.7 - Cardiomegaly Status: Acute Assessment and Plan: Euvolemic Continue home diuretics Continue metoprolol and statin (5) UTI (urinary tract infection): Code(s): N39.0 - Urinary tract infection, site not specified Status: Acute Assessment and Plan: IV Rocephin Plan Patient has Xarelto 20 mg on home med list will verify before prescribing Quality VTE Prophylaxis VTE prophylaxis: mechanical ordered Hospitalist MIPS Advance Care Plan I have confirmed that the patient's Advanced Care Plan is present, code status is documented, or surrogate decision maker is listed in patient medical record.: Yes Medication Reconciliation I have utilized all available resources to obtain, update and review the patients current medications (includes all prescriptions, OTC, herbals, cannabis, and nutritional supplements).: Yes
[2024-05-08] MEDS: DOXYCYCLINE 100 MG/NS 100 ML 100 MG/100 ML BAG IVPB ×2 (05:00→16:20)
[2024-05-08 06:00] VITALS: BP 104/53; PULSE 55; RESP 19; TEMP 37.3; O2SAT 95
[2024-05-08 08:00] VITALS: O2SAT 91
[2024-05-08 08:35] VITALS: PULSE 97
[2024-05-08] MEDS: METOPROLOL SUCCINATE EXT REL 25 MG TABCR PO (08:35)
[2024-05-08] MEDS: ASPIRIN 81 MG ENTERIC TABLET PO (08:39)
[2024-05-08] MEDS: BUMETANIDE 1 MG TABLET PO (08:40)
[2024-05-08] MEDS: PRAVASTATIN SODIUM 10 MG TABLET PO (08:40)
--- NOTE | 2024-05-08 10:00 | P.PNIM_ITS ---
Progress Note: A&P Assessment and Plan (1) Fall: Code(s): W19.XXXA - Unspecified fall, initial encounter Status: Acute Assessment and Plan: Use walker baseline PT OT after neurosurgery evaluation (2) Compression fracture of L1 vertebra: Code(s): S32.010A - Wedge compression fracture of first lumbar vertebra, initial encounter for closed fracture Status: Acute Assessment and Plan: Neurosurgery consult Bed rest until seen by Neurosurgery Patient will likely need a brace Pain management muscle relaxer prn nausea control prn (3) Hypoxia: Code(s): R09.02 - Hypoxemia Status: Acute Assessment and Plan: CT shows The lungs demonstrate mild atelectasis. There is a 3 mm nodule in right upper lobe, likely benign. Incentive spirometer Recommend follow-up for nodule outpatient Will start on Rocephin and doxycycline for possible pneumonia IS, ambulate tid with meals once cleared per neurosurg (4) Cardiomegaly: Code(s): I51.7 - Cardiomegaly Status: Acute Assessment and Plan: Euvolemic Continue home diuretics Continue metoprolol and statin (5) UTI (urinary tract infection): Code(s): N39.0 - Urinary tract infection, site not specified Status: Acute Assessment and Plan: IV Rocephin Time Spent With Patient Time with patient: 25 - 35 minutes Subjective Date/time seen: 05/08/24 10:00 Interval history: Ground level fall 83-year-old female presents the hospital after ground level fall complaining pain on her right side and bilateral knees. Back pain- worse with movement, muscle spasms. Pain is relieved with medications and rest. Patient states that she recently completed antibiotics for UTI. Lab work in the ED showed leukocytosis of 14.4, hemoglobin 10.5, venous blood gas pH 7.445, pCO2 44.4, PO2 <27, potassium 3.3, carbon dioxide 34, BUN of 64, creatinine of 2.43, GFR 19, UA shows cloudy urine with 1+ leukocyte esterase and many squamous cells will repeat UA. CT head shows no acute findings, CT C-spine shows no acute fractures, CT chest abdomen pelvis showed L1 compression fracture, calcified mass at the root of the small bowel mesentery and subcutaneous hematoma in the right buttock, on x-ray of pelvis patient has implanted device of some sort in her right buttocks. Assuming care. Pt is seen and examined. awaiting neurosurgery consult-bedrest for now. pt is comfortable. no acute distress. Review of Systems Review of Systems: 12 systems were reviewed and are negativ e except for as per HPI. Exam Narrative: General: well appearing, appears stated age. HEENT: normocephalic, atraumatic. Mucous membranes moist. EOMI, PERRLA, bilateral sclera anicteric, no conjunctival injection. Neck supple without JVD, lymphadenopathy, or bruit. Respiratory: clear to ascultation bilaterally. No rales/rhonic/wheezes. Cardiovascular: Regular rate and rhythm, normal S1-S2 upon ascultation. No murmurs, rubs, or clicks. PMI is nondisplaced, capillary refill less than 3 second. Abdomen: Soft, round, no pulsatile masses, nondistended and nontender. No rebound, no guarding. No CVA tenderness, no hepatosplenomegaly. Bowel sounds present to all four quadrants. No high pitch or tinkling sounds, resonant to percussion. Extremities: No cyanosis, clubbing, or edema present. Pulses are palpable 2/2. Limited range of motion lower extremities due to acute back pain Neuro: Alert and orientated x 4. PERRLA. Cranial nerves 2-12 intact without focal deficit. Skin: Warm, dry, and intact, without rash, erythema, or lesion. Psych: pleasant, cooperative, normal speech, normal affect, no hallucinations, no dysarthia Const: General: comfortable Objective Data Vital Signs Vital Signs: Vital Signs - 24 hr 05/07/24 10:01 05/07/24 10:02 05/07/24 11:00 Temperature Pulse Rate 85 77 77 Respiratory Rate 11 L 13 11 L Blood Pressure 96/64 L 118/59 L 123/65 Pulse Oximetry 90 93 95 Oxygen Delivery Oxygen Flow Rate 05/07/24 11:40 05/07/24 11:41 05/07/24 12:00 Temperature Pulse Rate 74 Respiratory Rate 14 Blood Pressure 104/66 Pulse Oximetry 86 L 96 96 Oxygen Delivery Room Air Nasal Cannula Oxygen Flow Rate 2 05/07/24 12:31 05/07/24 13:12 05/07/24 14:21 Temperature Pulse Rate 73 80 85 Respiratory Rate 13 17 20 Blood Pressure 105/68 113/49 L 104/48 L Pulse Oximetry 97 93 98 Oxygen Delivery Oxygen Flow Rate 05/07/24 14:31 05/07/24 16:03 05/07/24 16:40 Temperature 97.4 F L Pulse Rate 76 70 89 Respiratory Rate 12 16 14 Blood Pressure 108/47 L 106/47 L 127/38 L Pulse Oximetry 96 95 100 Oxygen Delivery Oxygen Flow Rate 05/07/24 21:54 05/08/24 06:00 05/08/24 08:35 Temperature 99.3 F 99.2 F Pulse Rate 74 55 L 97 Respiratory Rate 16 19 Blood Pressure 97/59 L 104/53 L Pulse Oximetry 91 95 Oxygen Delivery Oxygen Flow Rate Intake/Output Intake/Output: Intake & Output 05/06/24 05/06/24 05/07/24 05/08/24 00:59 23:59 23:59 23:59 Intake Total 290 200 Output Total 125 Balance 165 200 Meds/Results Medications: Active Medications Generic Name Dose Route Start Last Admin Trade Name Luigi PRN Reason Stop Dose Admin Aspirin 81 mg 05/08/24 09:00 05/08/24 08:39 Aspirin 81 Mg Enteric Tablet PO 81 mg DAILY MAYRA Administration Bumetanide 1 mg 05/08/24 09:00 05/08/24 08:40 Bumetanide 1 Mg Tablet PO 1 mg DAILY MAYRA Administration Ceftriaxone Sodium 1 gm in 50 mls @ 100 mls/hr 05/08/24 12:00 Rocephin 1 Gm/Ns 50 Ml IVPB Q24H MAYRA Doxycycline Hyclate 100 mg in 100 mls @ 100 mls/hr 05/08/24 04:00 05/08/24 05:00 Vibramycin 100 Mg/Ns 100 Ml IVPB 100 mls/hr Q12H MAYRA Administration Metoprolol Succinate 25 mg 05/08/24 09:00 05/08/24 08:35 Metoprolol Succinate Ext Rel 25 Mg Tabcr PO 25 mg DAILY MAYRA Administration Pravastatin Sodium 10 mg 05/08/24 09:00 05/08/24 08:40 Pravastatin Sodium 10 Mg Tablet PO 10 mg DAILY MAYRA Administration Radiology Results: ITS Impressions Head CT 05/07/24 08:32 IMPRESSION: No acute intracranial findings. Cervical Spine CT 05/07/24 08:38 IMPRESSION: 1. No fracture. 2. Severe cervical spondylosis. Chest X-Ray 05/07/24 08:49 IMPRESSION: Left basilar atelectasis versus pneumonia with pleural effusion. Hip/Pelvis X-Ray 05/07/24 08:49 IMPRESSION: 1. Mild osteoarthritis of the hips. Chest/Abdomen/Pelvis CT 05/07/24 10:44 IMPRESSION: 1. L1 compression fracture, likely acute or subacute. 2. 15 mm calcified mass at the root of the small bowel mesentery, which may be sclerosing mesenteritis or carcinoid. 3. Subcutaneous hematoma in the right buttock. Quality VTE Prophylaxis VTE prophylaxis: mechanical ordered and pharmacologic ordered
--- NOTE | 2024-05-08 10:06 | P.CONNS_ITS ---
Assessment and Plan Assessment and plan (1) Compression fracture of L1 vertebra: Code(s): S32.010A - Wedge compression fracture of first lumbar vertebra, initial encounter for closed fracture Status: Acute Plan Ms. Delong is an 83-year-old female who was admitted yesterday after having a ground-level fall yesterday at her living facility in which she fell onto her buttocks. She is currently feeling well without any pain and is neurologically intact. CT shows a mild L1 compression fracture with minimal height loss. I have contacted [employer] to fit her for an LSO. She can wear this for comfort during activity; she does not need to wear it in bed or when at rest. She may start mobilizing now and does not need to wait for the brace to walk. I recommend avoiding NSAIDs as these can impact bone healing. I will arrange for outpatient follow up in our clinic. Consult date: 05/08/24 HPI: Dianne Delong is a 83 year old female with history of HTN who was admitted yesterday after having a ground-level fall at her living facility. She states her legs felt weak yesterday because she had been using the elliptical for exercise. She had difficulty standing up in the bathroom and fell onto her buttocks. She called for a nurse who called an ambulance. She had back pain yesterday but currently states she is doing well. She has some focal right knee pain but denies radicular pain or paresthesias in the legs. Review of Systems 2 Review of Systems: All systems reviewed & are unremarkable except as noted in HPI and below [facility]LY [facility] Social History Social History Smoking status: Never smoker Alcohol intake: never Substance use: never Do You Feel Safe in your Home?: Yes Lack of Transportation: No Lack of Food: Never True Current Housing: I Have Housing Concerned About Future Housing: No Difficulty Paying Gas/Electric Bills: No Difficulty Paying for Meds: No Currently Unemployed: No Education: Bachelor's Degree Difficulty w/ Childcare or Family Care: No Spiritual care concerns: No Meds Home Medications and Allergies Home Medications ?Medication ?Instructions ?Recorded ?Confirmed ?Type acetaminophen 500 mg tablet 1,000 mg (2 x 500 mg) PO TID PRN 05/07/24 Rx [place] 7 days #42 tabs aspirin 81 mg tablet,delayed 81 mg PO DAILY 05/07/24 05/07/24 History release (Adult Aspirin Regimen) bumetanide 1 mg tablet 1 mg PO DAILY 05/07/24 05/07/24 History calcium carb, citrate, malate 1,200 mg PO DAILY 05/07/24 05/07/24 History ferrous sulfate 325 mg (65 mg 325 mg PO DAILY 05/07/24 05/07/24 History iron) tablet (FeroSul) fluconazole 150 mg tablet 150 mg PO DAILY 05/07/24 05/07/24 History loratadine 10 mg capsule 10 mg PO DAILY 05/07/24 05/07/24 History metoprolol succinate 25 mg 25 mg PO DAILY 05/07/24 05/07/24 History tablet,extended release 24 hr oxycodone 5 mg tablet 5 mg PO Q6H PRN pain #30 tabs 05/07/24 Rx potassium 75 mg tablet 575 mg PO DAILY 05/07/24 05/07/24 History pravastatin 10 mg tablet 10 mg PO DAILY 05/07/24 05/07/24 History rivaroxaban 20 mg tablet (Xarelto) 20 mg PO DAILY 05/07/24 05/07/24 History triamterene 37.5 1 cap PO DAILY 05/07/24 05/07/24 History mg-hydrochlorothiazide 25 mg capsule vitamin B complex 1 cap PO DAILY 05/07/24 05/07/24 History Allergies Allergy/AdvReac Type Severity Reaction Status Date / Time codeine Allergy Rash Verified 12/08/23 19:14 Sulfa (Sulfonamide Allergy Rash Verified 12/08/23 19:14 Antibiotics) Vital Signs Vital Signs - 24 hr 05/07/24 11:00 05/07/24 11:40 05/07/24 11:41 Temperature Pulse Rate 77 Respiratory Rate 11 L Blood Pressure 123/65 Pulse Oximetry 95 86 L 96 Oxygen Delivery Room Air Nasal Cannula Oxygen Flow Rate 2 05/07/24 12:00 05/07/24 12:31 05/07/24 13:12 Temperature Pulse Rate 74 73 80 Respiratory Rate 14 13 17 Blood Pressure 104/66 105/68 113/49 L Pulse Oximetry 96 97 93 Oxygen Delivery Oxygen Flow Rate 05/07/24 14:21 05/07/24 14:31 05/07/24 16:03 Temperature Pulse Rate 85 76 70 Respiratory Rate 20 12 16 Blood Pressure 104/48 L 108/47 L 106/47 L Pulse Oximetry 98 96 95 Oxygen Delivery Oxygen Flow Rate 05/07/24 16:40 05/07/24 21:54 05/08/24 06:00 Temperature 97.4 F L 99.3 F 99.2 F Pulse Rate 89 74 55 L Respiratory Rate 14 16 19 Blood Pressure 127/38 L 97/59 L 104/53 L Pulse Oximetry 100 91 95 Oxygen Delivery Oxygen Flow Rate 05/08/24 08:35 Temperature Pulse Rate 97 Respiratory Rate Blood Pressure Pulse Oximetry Oxygen Delivery Oxygen Flow Rate Exam 2 Narrative: General: -Well developed and well nourished. No a cute distress. Cooperative with exam. Mental status: -Awake and oriented to person, place, an d time. Integumentary: -No obvious skin lesions or masses Motor: -Muscle tone normal without spasticity o f flaccidity. No atrophy. No fasciculations. -No pronator drift -Right upper extremity: deltoid 5/5, bic eps 5/5, triceps 5/5, wrist extensors 5/5, wrist flexors 5/5, intrinsics 5/5 -Left upper extremity: deltoid 5/5, neto ps 5/5, triceps 5/5, wrist extensors 5/5, wrist flexors 5/5, intrinsics 5/5 -Right lower extremity: iliopsoas 5/5, q uadriceps 5/5, hamstrings 5/5, tibialis anterior 5/5, gastroc-soleus 5/5, EHL 5/5 -Left lower extremity: iliopsoas 5/5, qu adriceps 5/5, hamstrings 5/5, tibialis anterior 5/5, gastroc-soleus 5/5, EHL 5/5 Sensory: -Intact to light touch throughout -Normal proprioception throughout Reflexes: -1-2+ DTR's throughout -No Bosch's, clonus, or Babinski bilat erally Results Labs 05/07/24 08:57 05/07/24 08:57 Imaging My impression: I personally reviewed the CT C/a/p which shows a mild L1 compression fracture with minimal loss of height, no kyphosis, and no retropulsion
[2024-05-08 14:00] VITALS: BP 100/52; PULSE 88; RESP 20; TEMP 36.5; O2SAT 100
[2024-05-08] MEDS: RIVAROXABAN 20 MG TABLET PO (16:20)
[2024-05-08] MEDS: traMADol HCL (*CRX) 50 MG TABLET PO (20:52)
[2024-05-08 21:27] VITALS: BP 117/44; PULSE 87; RESP 16; TEMP 36.8; O2SAT 98
[2024-05-09] VITALS (9 sets, daily range): BP systolic 104–108; BP diastolic 49–51; PULSE 71–99; RESP 15–16; TEMP 36.4–37.1; O2SAT 85–99
[2024-05-09] MEDS: DOXYCYCLINE 100 MG/NS 100 ML 100 MG/100 ML BAG IVPB ×2 (03:23→16:46)
[2024-05-09] MEDS: LORATADINE 10 MG TABLET PO (09:16)
[2024-05-09] MEDS: BUMETANIDE 1 MG TABLET PO (09:16)
[2024-05-09] MEDS: METOPROLOL SUCCINATE EXT REL 25 MG TABCR PO (09:16)
[2024-05-09] MEDS: ASPIRIN 81 MG ENTERIC TABLET PO (09:17)
[2024-05-09] MEDS: PRAVASTATIN SODIUM 10 MG TABLET PO (09:17)
[2024-05-09 09:41] LABS: Hemoglobin 9.1 g/dL (12.0-15.0); Mean Corpuscular HGB Conc 31.4 g/dl (32-36); Mean Corpuscular Hemoglobin 27.8 pg (26-34); Mean Corpuscular Volume 88.7 fl (80-100); Mean Platelet Volume 9.8 fl (7.4-10.4); Platelet Count Result 308 k/mm3 (150-375); Red Blood Count 3.27 M/mm3 (4.2-5.4); Red Cell Distribution Width 13.7 % (11.5-14.5); White Blood Count 8.4 K/mm3 (4.5-10.0)
[2024-05-09] MEDS: POTASSIUM CHLORIDE 10 MEQ ER TABLET PO (09:49)
[2024-05-09 09:53] LABS: Anion Gap 7 mmol/L (4-12); Blood Urea Nitrogen 62 mg/dL (7-17); Carbon Dioxide 33 mmol/L (22-30); Chloride 97 mmol/L (98-107); Estimated CRCL calculation 19 ml/min; Estimated Glomerular Filt Rate 27; Glucose 155 mg/dL (65-110); Potassium 3.7 mmol/L (3.4-5.0); Sodium 137 mmol/L (137-145)
--- NOTE | 2024-05-09 13:06 | P.PNIM_ITS ---
Progress Note: A&P Assessment and Plan (1) Fall: Code(s): W19.XXXA - Unspecified fall, initial encounter Status: Acute Assessment and Plan: Use walker baseline PT OT after neurosurgery evaluation no acute interventions. PT/OT, pain control. (2) Compression fracture of L1 vertebra: Code(s): S32.010A - Wedge compression fracture of first lumbar vertebra, initial encounter for closed fracture Status: Acute Assessment and Plan: Neurosurgery consult Bed rest until seen by Neurosurgery Patient will likely need a brace Pain management muscle relaxer prn nausea control prn PT/OT, pain control. (3) Hypoxia: Code(s): R09.02 - Hypoxemia Status: Acute Assessment and Plan: CT shows The lungs demonstrate mild atelectasis. There is a 3 mm nodule in right upper lobe, likely benign. Incentive spirometer Recommend follow-up for nodule outpatient Will start on Rocephin and doxycycline for possible pneumonia IS, ambulate tid with meals once cleared per neurosurg was requiring o2 2l per nc overnight but able to wean off this morning (4) Cardiomegaly: Code(s): I51.7 - Cardiomegaly Status: Acute Assessment and Plan: Euvolemic Continue home diuretics Continue metoprolol and statin (5) UTI (urinary tract infection): Code(s): N39.0 - Urinary tract infection, site not specified Status: Acute Assessment and Plan: IV Rocephin Time Spent With Patient Time with patient: 25 - 35 minutes Subjective Date/time seen: 05/09/24 13:06 Interval history: Ground level fall 83-year-old female presents the hospital after ground level fall complaining pain on her right side and bilateral knees. Back pain- worse with movement, muscle spasms. Pain is relieved with medications and rest. Patient states that she recently completed antibiotics for UTI. Lab work in the ED showed leukocytosis of 14.4, hemoglobin 10.5, venous blood gas pH 7.445, pCO2 44.4, PO2 <27, potassium 3.3, carbon dioxide 34, BUN of 64, creatinine of 2.43, GFR 19, UA shows cloudy urine with 1+ leukocyte esterase and many squamous cells will repeat UA. CT head shows no acute findings, CT C-spine shows no acute fractures, CT chest abdomen pelvis showed L1 compression fracture, calcified mass at the root of the small bowel mesentery and subc utaneous hematoma in the right buttock, on x-ray of pelvis patient has implanted device of some sort in her right buttocks. Assuming care. Pt is seen and examined. awaiting neurosurgery consult-bedrest for now. pt is comfortable. no acute distress. 05/09- no acute interventions. Brace is on. PT/OT ordered. Pain is controlled. Review of Systems Review of Systems: 12 systems were reviewed and are negativ e except for as per HPI. Exam Narrative: General: well appearing, appears stated age. HEENT: normocephalic, atraumatic. Mucous membranes moist. EOMI, PERRLA, bilateral sclera anicteric, no conjunctival injection. Neck supple without JVD, lymphadenopathy, or bruit. Respiratory: clear to ascultation bilaterally. No rales/rhonic/wheezes. Cardiovascular: Regular rate and rhythm, normal S1-S2 upon ascultation. No murmurs, rubs, or clicks. PMI is nondisplaced, capillary refill less than 3 second. Abdomen: Soft, round, no pulsatile masses, nondistended and nontender. No rebound, no guarding. No CVA tenderness, no hepatosplenomegaly. Bowel sounds present to all four quadrants. No high pitch or tinkling sounds, resonant to percussion. Extremities: No cyanosis, clubbing, or edema present. Pulses are palpable 2/2. Limited range of motion lower extremities due to acute back pain Neuro: Alert and orientated x 4. PERRLA. Cranial nerves 2-12 intact without focal deficit. Skin: Warm, dry, and intact, without rash, erythema, or lesion. Psych: pleasant, cooperative, normal speech, normal affect, no hallucinations, no dysarthia Const: General: comfortable Objective Data Vital Signs Vital Signs: Vital Signs - 24 hr 05/08/24 14:00 05/08/24 21:27 05/09/24 05:55 Temperature 97.7 F 98.2 F 97.5 F L Pulse Rate 88 87 71 Respiratory Rate 20 16 16 Blood Pressure 100/52 L 117/44 L 108/49 L Pulse Oximetry 100 98 96 Oxygen Delivery Oxygen Flow Rate 05/09/24 08:00 05/09/24 09:16 05/09/24 11:00 Temperature Pulse Rate 99 Respiratory Rate Blood Pressure Pulse Oximetry 99 85 L Oxygen Delivery Nasal Cannula Room Air Oxygen Flow Rate 2 05/09/24 11:00 Temperature Pulse Rate Respiratory Rate Blood Pressure Pulse Oximetry 91 Oxygen Delivery Nasal Cannula Oxygen Flow Rate 1 Intake/Output Intake/Output: Intake & Output 05/06/24 05/07/24 05/08/24 05/09/24 23:59 23:59 23:59 23:59 Intake Total 290 1520 750 Output Total 125 200 250 Balance 165 1320 500 Meds/Results Medications: Active Medications Generic Name Dose Route Start Last Admin Trade Name Freq PRN Reason Stop Dose Admin Acetaminophen 650 mg 05/08/24 20:31 Acetaminophen 325 Mg Tablet PO Q6H PRN Mild Pain (1-3) or Fever Aspirin 81 mg 05/08/24 09:00 05/09/24 09:17 Aspirin 81 Mg Enteric Tablet PO 81 mg DAILY MAYRA Administration Bumetanide 1 mg 05/08/24 09:00 05/09/24 09:16 Bumetanide 1 Mg Tablet PO 1 mg DAILY MAYRA Administration Ceftriaxone Sodium 1 gm in 50 mls @ 100 mls/hr 05/08/24 12:00 05/09/24 13:02 Rocephin 1 Gm/Ns 50 Ml IVPB 100 mls/hr Q24H MAYRA Administration Doxycycline Hyclate 100 mg in 100 mls @ 100 mls/hr 05/08/24 04:00 05/09/24 03:23 Vibramycin 100 Mg/Ns 100 Ml IVPB 100 mls/hr Q12H MAYRA Administration Loratadine 10 mg 05/09/24 09:00 05/09/24 09:16 Loratadine 10 Mg Tablet PO 10 mg DAILY MAYRA Administration Metoprolol Succinate 25 mg 05/08/24 09:00 05/09/24 09:16 Metoprolol Succinate Ext Rel 25 Mg Tabcr PO 25 mg DAILY MAYRA Administration Potassium Chloride 10 meq 05/09/24 09:20 05/09/24 09:49 Potassium Chloride 10 Meq Er Tablet PO 10 meq DAILY@0800 MAYRA Administration Pravastatin Sodium 10 mg 05/08/24 09:00 05/09/24 09:17 Pravastatin Sodium 10 Mg Tablet PO 10 mg DAILY MAYRA Administration Rivaroxaban 20 mg 05/08/24 17:00 05/08/24 16:20 Rivaroxaban 20 Mg Tablet PO 20 mg DAILY@1700 MAYRA Administration Radiology Results: ITS Impressions Head CT 05/07/24 08:32 IMPRESSION: No acute intracranial findings. Cervical Spine CT 05/07/24 08:38 IMPRESSION: 1. No fracture. 2. Severe cervical spondylosis. Chest X-Ray 05/07/24 08:49 IMPRESSION: Left basilar atelectasis versus pneumonia with pleural effusion. Hip/Pelvis X-Ray 05/07/24 08:49 IMPRESSION: 1. Mild osteoarthritis of the hips. Chest/Abdomen/Pelvis CT 05/07/24 10:44 IMPRESSION: 1. L1 compression fracture, likely acute or subacute. 2. 15 mm calcified mass at the root of the small bowel mesentery, which may be sclerosing mesenteritis or carcinoid. 3. Subcutaneous hematoma in the right buttock. Labs Labs: Laboratory Results - last 24 hr 05/09/24 09:30 WBC 8.4 RBC 3.27 L Hgb 9.1 L Hct 29.0 L MCV 88.7 MCH 27.8 MCHC 31.4 L RDW 13.7 Plt Count 308 MPV 9.8 Sodium 137 Potassium 3.7 Chloride 97 L Carbon Dioxide 33 H Anion Gap 7 BUN 62 H Creatinine 1.80 H Estim Creat Clear Calc 19 Estimated GFR 27 L Glucose 155 H Calcium 9.0 Quality VTE Prophylaxis VTE prophylaxis: mechanical ordered and pharmacologic ordered
[2024-05-09] MEDS: RIVAROXABAN 20 MG TABLET PO (16:47)
[2024-05-10] MEDS: DOXYCYCLINE 100 MG/NS 100 ML 100 MG/100 ML BAG IVPB (04:12)
[2024-05-10 05:14] VITALS: BP 126/50; PULSE 68; RESP 16; TEMP 37.1; O2SAT 94
[2024-05-10 08:06] VITALS: PULSE 54
[2024-05-10] MEDS: METOPROLOL SUCCINATE EXT REL 25 MG TABCR PO (08:06)
[2024-05-10] MEDS: BUMETANIDE 1 MG TABLET PO (08:06)
[2024-05-10] MEDS: ASPIRIN 81 MG ENTERIC TABLET PO (08:07)
[2024-05-10] MEDS: POTASSIUM CHLORIDE 10 MEQ ER TABLET PO (08:07)
[2024-05-10] MEDS: PRAVASTATIN SODIUM 10 MG TABLET PO (08:08)
[2024-05-10] MEDS: LORATADINE 10 MG TABLET PO (08:08)
[2024-05-10 08:10] VITALS: O2SAT 92
[2024-05-10 11:17] LABS: Hematocrit 29.4 % (37.0-47.0); Hemoglobin 9.2 g/dL (12.0-15.0); Mean Corpuscular HGB Conc 31.3 g/dl (32-36); Mean Corpuscular Hemoglobin 27.6 pg (26-34); Mean Corpuscular Volume 88.3 fl (80-100); Mean Platelet Volume 10.6 fl (7.4-10.4); Platelet Count Result 338 k/mm3 (150-375); Red Blood Count 3.33 M/mm3 (4.2-5.4); Red Cell Distribution Width 13.5 % (11.5-14.5); White Blood Count 7.3 K/mm3 (4.5-10.0)
[2024-05-10 11:26] LABS: Anion Gap 10 mmol/L (4-12); Blood Urea Nitrogen 56 mg/dL (7-17); Calcium 9.1 mg/dL (8.4-10.2); Carbon Dioxide 31 mmol/L (22-30); Chloride 97 mmol/L (98-107); Estimated CRCL calculation 20 ml/min; Estimated Glomerular Filt Rate 27; Glucose 143 mg/dL (65-110); Potassium 3.6 mmol/L (3.4-5.0); Sodium 138 mmol/L (137-145)
[2024-05-10] MEDS: DOXYCYCLINE HYCLATE 100 MG TABLET PO (12:26)
[2024-05-10] MEDS: AMOXICILLIN/CLAVULANATE K 500-125 MG TAB 1 TABLET PO (12:26)
--- NOTE | 2024-05-10 13:32 | P.DS_ITS ---
DS: Admitting Diagnosis Discharge Date 05/10 Admitting Diagnosis hypoxia DS: Discharge Diagnosis Discharge Diagnosis (1) Fall: Code(s): W19.XXXA - Unspecified fall, initial encounter Status: Acute (2) Compression fracture of L1 vertebra: Code(s): S32.010A - Wedge compression fracture of first lumbar vertebra, initial encounter for closed fracture Status: Acute (3) Hypoxia: Code(s): R09.02 - Hypoxemia Status: Acute (4) Cardiomegaly: Code(s): I51.7 - Cardiomegaly Status: Acute (5) UTI (urinary tract infection): Code(s): N39.0 - Urinary tract infection, site not specified Status: Acute DS: Summary Hospital Course Hospital Course: 83-year-old female presents the hospital after ground level fall complaining pa in on her right side and bilateral knees. Back pain- worse with movement, muscle spasms. Pain is relieved with medications and rest. Patient states that she recently completed antibiotics for UTI. Lab work in the ED showed leukocytosis of 14.4, hemoglobin 10.5, venous blood gas pH 7.445, pCO2 44.4, PO2 <27, potassium 3.3, carbon dioxide 34, BUN of 64, creatinine of 2.43, GFR 19, UA shows cloudy urine with 1+ leukocyte esterase and many squamous cells will repeat UA. CT head shows no acute findings, CT C-spine shows no acute fractures, CT chest abdomen pelvis showed L1 compression fractur e, calcified mass at the root of the small bowel mesentery and subcutaneous hematoma in the right buttock, on x-ray of pelvis patient has implanted device of some sort in her right buttocks. Neurosurgery was consulted. See notes: Ms. Delong is an 83-year-old female who was admitted yesterday after having a ground-level fall yesterday at her living facility in which she fell onto her buttocks. She is currently feeling well without any pain and is neurologically intact. CT shows a mild L1 compression fracture with minimal height loss. I have contacted [employer] to fit her for an LSO. She can wear this for comfort during activity; she does not need to wear it in bed or when at rest. She may start mobilizing now and does not need to wait for the brace to walk. I recommend avoiding NSAIDs as these can impact bone healing. I will arrange for outpatient follow up in our clinic. UA did not grow any bacteria. Rocephin stopped. Pt was able to be weaned off oxygen on room air now. stable. Will finish antibiotics- Augmentin and doxy- both for three more doses. Kidney function is improving. Will need a f/u with repeat labs as an oupt. Holding BP med as bp is on a lower side and stable Please, monitor closely and restart BP med if needed. Status at Discharge Functional status at discharge: uses cane/walker Overall status at discharge: patient is progressing back to baseline Time Spent with Patient Time attestation: Total time spent providing and/or coordinating discharge services: Time spent: Greater than 30 minutes Exam Narrative: General: well appearing, appears stated age. HEENT: normocephalic, atraumatic. Mucous membranes moist. EOMI, PERRLA, bilateral sclera anicteric, no conjunctival injection. Neck supple without JVD, lymphadenopathy, or bruit. Respiratory: clear to ascultation bilaterally. No rales/rhonic/wheezes. Cardiovascular: Regular rate and rhythm, normal S1-S2 upon ascultation. No murmurs, rubs, or clicks. PMI is nondisplaced, capillary refill less than 3 second. Abdomen: Soft, round, no pulsatile masses, nondistended and nontender. No rebound, no guarding. No CVA tenderness, no hepatosplenomegaly. Bowel sounds present to all four quadrants. No high pitch or tinkling sounds, resonant to percussion. Extremities: No cyanosis, clubbing, or edema present. Pulses are palpable 2/2. Limited range of motion lower extremities due to acute back pain Neuro: Alert and orientated x 4. PERRLA. Cranial nerves 2-12 intact without focal deficit. Skin: Warm, dry, and intact, without rash, erythema, or lesion. Psych: pleasant, cooperative, normal speech, normal affect, no hallucinations, no dysarthia Const: General: comfortable DS: Data Data Completed and Pending Completed studies during hospitalization: chest pelvis ct Labs on day of discharge: Labs from last 24 hours 05/10/24 10:59 WBC 7.3 RBC 3.33 L Hgb 9.2 L Hct 29.4 L MCV 88.3 MCH 27.6 MCHC 31.3 L RDW 13.5 Plt Count 338 MPV 10.6 H Sodium 138 Potassium 3.6 Chloride 97 L Carbon Dioxide 31 H Anion Gap 10 BUN 56 H Creatinine 1.77 H Estim Creat Clear Calc 20 Estimated GFR 27 L Glucose 143 H Calcium 9.1 Discharge Plan Discharge Attending physician on discharge: Hakeem Ordonez Consulting providers: Pedro Mckeon Discharging Clinician: Swati Durbin Patient Disposition: [place] Long Term/Asst Living Activity: june shower Diet: as tolerated and regular Discharge Instructions: Per Care Coordination: [facility] ([phone]) will call to set up initial visit. Patient Instructions: Antibiotic Form Patient Language: Syriac Stand Alone Forms: General Discharge Information Follow-up/Referrals: Wilbert,STEPHEN Clifford [Primary Care Provider] - 2 Weeks Marie Diehl MD [Physician] - 2 Weeks Discharge Medications: New acetaminophen 500 mg tablet 1,000 mg PO TID PRN (Reason: [place]) 7 Days Qty: 42 0RF oxycodone 5 mg tablet 5 mg PO Q6H PRN (Reason: pain) Qty: 30 0RF doxycycline hyclate 100 mg Tablet 100 mg PO Q12HR Qty: 3 0RF amoxicillin-pot clavulanate [Augmentin] 500-125 mg Tablet 1 tablet PO Q12HR Qty: 3 0RF Continued bumetanide 1 mg tablet 1 mg PO DAILY ferrous sulfate [FeroSul] 325 mg (65 mg iron) tablet 325 mg PO DAILY fluconazole 150 mg tablet 150 mg PO DAILY pravastatin 10 mg tablet 10 mg PO DAILY metoprolol succinate 25 mg tablet extended release 24 hr 25 mg PO DAILY Xarelto 20 mg tablet 20 mg PO DAILY calcium carb, citrate, malate 250 mg calcium capsule 1,200 mg PO DAILY aspirin [Adult Aspirin Regimen] 81 mg tablet,delayed release (DR/EC) 81 mg PO DAILY potassium 75 mg tablet 575 mg PO DAILY loratadine 10 mg capsule 10 mg PO DAILY vitamin B complex Capsule 1 cap PO DAILY Held triamterene-hydrochlorothiazid 37.5-25 mg capsule 1 cap PO DAILY Hold Instructions: Resume on 05/24/24. hold until BP is better and re evaluate Date of admission: 05/07/24 14:39 Primary Care Provider: Wilbert,Venessa Admitting Provider: Julio Carrasco Attending physician on admission: Julio Carrasco Condition: Stable Quality VTE Prophylaxis VTE prophylaxis: mechanical ordered and pharmacologic ordered Hospitalist MIPS Heart Failure (Exclusion) Patient has history of Heart Transplant or Left Ventricular Assistive Device?: No IF YES, STOP HERE Heart Failure (Qualifier) Patient has current or prior documentation of LVEF less than or equal to 40%, or mod/servere depressed LVSF?: No IF NO, STOP HERE
--- NOTE | 2024-05-13 07:27 | WPDCDIQUERY2 ---
CDI Query Clarification Request 1) Please clarify if pneumonia has been ruled in or ruled out. 2)Hypoxia has been documented Please review the clinical information below and clarify the respiratory diagnosis the patient is being treated for: Hypoxia or hypoxemia without respiratory failure Respiratory distress without respiratory failure Acute respiratory failure with hypoxia Acute respiratory failure with hypercapnia Acute respiratory failure with hypoxia and hypercapnia Acute on chronic respiratory failure with hypoxia Acute on chronic respiratory failure with hypercapnia Acute on chronic respiratory failure with hypoxia and hypercapnia Acute respiratory distress syndrome (ARDS) Chronic respiratory failure with hypoxia Chronic respiratory failure with hypercapnia Chronic respiratory failure with hypoxia and hypercapnia Other explanation clinical findings, please specify Unable to determine The medical chart reflects the following: (3) Hypoxia: Code(s): R09.02 - Hypoxemia Status: Acute Assessment and Plan: CT shows The lungs demonstrate mild atelectasis. There is a 3 mm nodule in right upper lobe, likely benign. Incentive spirometer Recommend follow-up for nodule outpatient Will start on Rocephin and doxycycline for possible pneumonia IS, ambulate tid with meals once cleared per neurosurg was requiring o2 2l per nc overnight but able to wean off this morning (4) Cardiomegaly: Code(s): I51.7 - Cardiomegaly Status: Acute Assessment and Plan: Euvolemic Continue home diuretics Continue metoprolol and statin CXR: IMPRESSION: Left basilar atelectasis versus pneumonia with pleural effusion. <Zayra Villafana RN - Last Filed: 05/13/24 07:37> Provider Comments - Hypoxia or hypoxemia without respiratory failure - pneumonia <Swati Durbin APRN - Last Filed: 05/13/24 08:21>
== END 2024-05-10 15:25 | disposition home or self-care (01) | DRG 551 ==
LOC: ANHED 13:34 → ANH3MEDSUR 15:49
PROVIDERS: Admitting Provider Hospitalist; Emergency Provider Emergency Medicine; PCP Nurse Practitioner Family; Visit Provider Nurse Practitioner
DX: S32.010A Wedge compression fracture of first lumbar vertebra, initial encounter for closed fracture (principal); J18.9 Pneumonia, unspecified organism; N18.4 Chronic kidney disease, stage 4 (severe); W18.39XA Other fall on same level, initial encounter; R09.02 Hypoxemia; I51.7 Cardiomegaly; I48.91 Unspecified atrial fibrillation; Z79.01 Long term (current) use of anticoagulants
CPT/HCPCS: 36415; 70450; 71045; 71250; 72125; 73502; 74176; 80048; 80053; 81001; 82803; 83605; 85025; 85027; 87637; 93005; 97161; 97165; 97530; 97535; 99285; A9270; J0696

== ENCOUNTER 2024-06-06 13:28 | Outpatient (CLI) | payer MEDICARE, SELFPAY ==
--- NOTE | ~2024-06-06 | XR_ITS ---
EXAM/ PROCEDURE: XR lumbar spine 2-3V - 06/06/2024 13:45 CDT HISTORY: 83 years old Female with S32.010A - Wedge compression fracture of first lumbar terry... COMPARISON: 05/07/2024 TECHNIQUE: Three view(s) FINDINGS/ IMPRESSION: Decrease in height of L1 vertebral body along with acute compression deformity is again seen.Interver tebral disc spaces are within normal limits. Cholecystectomy clips are seen. Battery along with sacral stimulator lead seen. Reviewed, dictated and finalized at location A.
--- OUTSIDE RECORDS SUMMARY | 2024-06-06 14:02 | XMS_ITS | Referral Summary ---
Author Organization [facility] [address] Address [address] [place] [address] Care Team Providers Care Television News Photographer Name Role Phone Amalia Leyva NP Primary [...] Comments Blood Pressure 118/60 02/15/2024 10:40 AM HOME ENERGY AUDITOR Pulse 88 02/15/2024 10:40 AM HOME ENERGY AUDITOR Temperature - - Respiratory Rate - - Oxygen Saturation 98% 02/15/2024 10:40 AM HOME ENERGY AUDITOR Inhaled Oxygen Concentration - - Weight 66.2 kg (146 lb) 02/15/2024 10:40 AM HOME ENERGY AUDITOR Height 154.9 cm (5' 1 ) 02/15/2024 10:40 AM HOME ENERGY AUDITOR Body Mass Index 27.59 02/15/2024 10:40 AM HOME ENERGY AUDITOR Plan of Treatment Not on file Insurance MEDICARE [facility] Address: [address] [address] [place] [address] [facility] MEDICARE SUPPLEMENT Care Teams Television News Photographer Relationship Specialty Start Date End Date Amalia Leyva NP [address] [facility] [address] [place] [address] PCP - General Nurse Practitioner 06/05/23
--- OUTSIDE RECORDS SUMMARY | 2024-06-06 14:02 | XMS_ITS | Continuity of Care Document ---
Author Organization [facility] Address [address] [place] [address] Phone Care Team Providers Care Pathology Laboratory Aides Teacher Name Role Phone Reymundo JACKY Sy Unavailable [...] Copied on Encounter Office/outpa tient visit,est, mod [facility], [address] [place] [address], [id number], tel:[phone] [facility] knee (chief complaint) Pain in right kneeBody mass index (BMI) 31.0-31.9, adultEncounter for exam of blood pressure w/o abnormal findingsPresence of right artificial knee joint Oct- 3 Reymundo Dan. [address] [place] [address], [id number] , [place]. tel:[phone] Referring Provider: Sy Dwyer, [address] [place], [address] . tel:[phone] [facility], [address] [place] [address], [id number], tel:[phone] [facility] No Information 3 Reymundo Dan. [address] [place] [address], [id number] , [place]. tel:[phone] Referring Provider: Ramin Bowman, [address] [place] [address], [id number] . tel:[phone] [facility], [address] [place] [address], [id number], tel:[phone] [facility] ankle (chief complaint) Presence of right artificial knee joint 3 Reymundo Dan. [address], [place], [id number] , . tel:[phone] Referring Provider: Sy Dwyer, [address] [place], [address] . tel:[phone] [facility], [address] [place] [address], [id number], tel:[phone] [facility] knee (chief complaint) Postoperative wound infection 3 Reymundo Dan. [address], [place], [id number] , [place]. tel:[phone] Referring Provider: Sy Dwyer, [address] [place], [address] . tel:[phone] [facility], [address] [place] [address], [id number], tel:[phone] [facility] No Information 3 Jairo Faustin. [address] [place] [address], [id number] , [place]. tel:[phone] [facility], [address] [place] [address], [id number], [place] tel:[phone] [facility] knee (chief complaint) Pain in right kneeStatus post total right knee replacement 3 Reymundo Dan. [address], [place], [id number] , . [phone] Referring Provider: Sy Dwyer, [address] [place], [address] . tel:[phone] [facility], [address] [place] [address], [id number], [place] tel:[phone] [facility] No Information 3 Reymundo Sy. [address] [place] [address], [id number] , . tel:[phone] Referring Provider: Ramin Bowman, [address] [place], [address] . tel:[phone] [facility], [address] [place] [address], [id number], tel:[phone] [facility] No Information 3 Jairo Faustin. [address] [place] [address], [id number] , . tel:[phone] Referring Provider: Ramin Bowman, [address] [place] [address], [address] . tel:[phone] [facility], [address] [place] [address], [id number], tel:[phone] [facility] No Information 3 Reymundo Dan. [address] [place] [address], [id number] , . tel:[phone] Referring Provider: Ramin Bowman, [address] [place] [address], [id number] . tel:[phone] [facility], [address] [place] [address], [id number], tel:[phone] [facility] Primary osteoarthritis of right knee 3 Jairo Faustin. [address] [place] [address], [id number] , [place]. tel:[phone] Office/outpa tient visit,est, mod [facility], [address] [place] [address], [id number], tel:[phone] [facility] knee (chief complaint) Primary osteoarthritis of right kneePain in right knee Apr- 3 Reymundo Dan. [address] [place] [address], [id number] , [place]. tel:[phone] Referring Provider: Sy Dwyer, [address] [place] [address], [id number] . tel:[phone] Office/outpa tient visit,est, mod [facility], [address] [place] [address], [id number], tel:[phone] [facility] lumbar spine (chief complaint) Closed compression fracture of thoracic vertebra, 9 Vimal Villasenor. [address], [place], [id number] , . tel:[phone] [facility], [address] [place] [address], [id number], tel:[phone] [facility] lumbar spine (chief complaint) Closed compression fracture of thoracic vertebra, May-0 9 Vimal Villasenor. [address], [place], [id number] , . tel:[phone] [facility], [address] [place] [address], [id number], tel:[phone] [facility] No Information 9 Vimal Villasenor. [address], [place], [id number] , . tel:[phone] Referring Provider: Hamilton Riley, [address] [place] [address], [id number] . tel:[phone] Office/outpa tient visit,[facility], [address] [place] [address], [id number], tel:[phone] [facility] thoracic spine pain (chief complaint) Midline low back pain, with sciatica presence unspecifiedClosed compression fracture of thoracic vertebra, initial encounterClosed compression fracture of thoracic vertebra,Closed compression fracture of thoracic vertebra,Closed compression fracture of thoracic vertebra,Closed compression fracture of thoracic vertebra,Encounte r for other preprocedural examinationCollap sed vertebra of thoracic region, initial encounter for fracture 9 Rubén Strickland. [address] [place] [address], [id number] , [place]. tel:[phone] Office/outpa tient visit,[facility], [facility], [address] [place] [address], [id number], tel:[phone] [facility] Arthritis Knee Localized Primary (osteoarthritis)M ed Meniscus/Derang(O ld) - Unspecified 3 Marco A goins. [address] [place] [address], [id number], [place]. tel:[phone] Office/outpa tient visit,new, [facility], [address], [place], [id number], tel:[phone] [facility] Pain In LimbArthritis Knee Localized Primary (osteoarthritis) 3 Marco A Ojeda briseida. [address] [place], [address], . tel:[phone] Referring Provider: Avinash Adrian, [address] [place], [address] . tel:[phone] Family History Family Member Type Diagnosis Age At Onset Problem (finding) Family history of coronary arteriosclerosis Problem (finding) Family history of strok e Problem (finding) Family history of Cance r, unknown Payers Payer name Insurance type Covered constitution party ID Authoriza tion(s) [place] MB [id number] BCBS [facility] [id number] Social History Type Description Quantity Date Captured [...] Radiology Order Kn ee Xray 3 Views ([id number]), Ordered on: Ordered Future Order: Radiology Order Kn ee Xray 3 Views ([id number]), Ordered on: Ordered Future Order: Radiology Order Kn ee Xray 3 Views ([id number]), Ordered on: Ordered History Of Present Illness [...]
--- OUTSIDE RECORDS SUMMARY | 2024-06-06 14:02 | XMS_ITS | Clinical Summary ---
Author Organization [facility] [address] Address [address] [place] [address] Care Team Providers Care Pizza Driver Name Role Phone Amalia Leyva NP Primary [...] Date Palpitations 08/18/2023 Hypertension 08/18/2023 Hyperlipidemia 08/18/2023 Surgical History Surgery Date Site/Laterality Comments CHOLECYSTECTOMY [...] Comments Blood Pressure 118/60 02/15/2024 10:40 AM CLAY ROASTER Pulse 88 02/15/2024 10:40 AM CLAY ROASTER Temperature - - Respiratory Rate - - Oxygen Saturation 98% 02/15/2024 10:40 AM CLAY ROASTER Inhaled Oxygen Concentration - - Weight 66.2 kg (146 lb) 02/15/2024 10:40 AM CLAY ROASTER Height 154.9 cm (5' 1 ) 02/15/2024 10:40 AM CLAY ROASTER Body Mass Index 27.59 02/15/2024 10:40 AM CLAY ROASTER Plan of Treatment Health Maintenance Due Date Last Done Comments Depression Screening 1941 Fall Risk Assessment 1940 Osteoporosis Screening-Bone Density Scan 1940 Hepatitis B Screening 12/26/1959 Pneumococcal vaccine 65+ (1 of 1 - PCV) 12/26/1991 Zoster Vaccine (1 of 2) 12/26/1991 Well Visit 65+ 2006 DTaP/Tdap/Td Vaccine (2 - Td or Tdap) 10/03/202307/2013 Influenza Vaccine (#1) 2023 Insurance MEDICARE [facility] MEDICARE SUPPLEMENT Care Teams Pizza Driver Relationship Specialty Start Date End Date Amalia Leyva NP [address] [place] [address] PCP - General Nurse Practitioner 06/05/23
== END 2024-06-06 13:29 | disposition home or self-care (01) ==
LOC: ANHIMG 13:35
PROVIDERS: PCP Nurse Practitioner Family; Visit Provider Nurse Practitioner Adult Health
DX: S32.010A Wedge compression fracture of first lumbar vertebra, initial encounter for closed fracture (principal); Z90.49 Acquired absence of other specified parts of digestive tract; Z96.82 Presence of neurostimulator; X58.XXXA Exposure to other specified factors, initial encounter
CPT/HCPCS: 72100

== ENCOUNTER 2024-07-23 11:32 | Outpatient (CLI) | payer MEDICARE, SELFPAY ==
--- NOTE | ~2024-07-23 | XR_ITS ---
Lumbosacral Spine: AP and lateral views Clinical History: L1 compression fracture Findings: Moderate L1 compression fractures present, possible minimal progressive loss of height. No other fracture seen. There is moderate facet arthropathy from L3 through S1.. The sacroiliac joints are normally outlined. Impression: Moderate L1 compression fracture, with possible minimal progressive loss of height as compared to neto or exam. Reviewed, dictated and finalized at location . Impression: Moderate L1 compression fracture, with possible minimal progressive loss of hei ght as compared to prior exam.
--- OUTSIDE RECORDS SUMMARY | 2024-07-23 11:38 | XMS_ITS | Referral Summary ---
Author Organization [facility] [address] Address [address] [place] [address] Care Team Providers Care Cessation Systems Outreach Specialist Name Role Phone Amalia Leyva NP Primary [...] with dinner 30 tablet 11 09/28/2023 Active calcium amino acid chelate 200 mg calcium tablet Take by mouth Active potassium gluconate 550 mg (90 mg) tablet 1 tablet (550 mg total) Active aspirin 81 mg enteric coated tablet Take 1 tablet (81 mg total) by mouth daily Active loratadine (CLARITIN) 10 mg tablet Take 1 tablet (10 mg total) by mouth daily Active bumetanide (BUMEX) 1 mg tablet Take 1 tablet (1 mg total) by mouth daily 90 tablet 1 06/17/2024 Active Active Problems Problem Noted Date Diagnosed [...] Comments Blood Pressure 118/60 02/15/2024 10:40 AM SOFTWARE DESIGN ANALYST Pulse 88 02/15/2024 10:40 AM SOFTWARE DESIGN ANALYST Temperature - - Respiratory Rate - - Oxygen Saturation 98% 02/15/2024 10:40 AM SOFTWARE DESIGN ANALYST Inhaled Oxygen Concentration - - Weight 66.2 kg (146 lb) 02/15/2024 10:40 AM SOFTWARE DESIGN ANALYST Height 154.9 cm (5' 1) 02/15/2024 10:40 AM SOFTWARE DESIGN ANALYST Body Mass Index 27.59 02/15/2024 10:40 AM SOFTWARE DESIGN ANALYST Plan of Treatment Not on file Insurance MEDICARE [facility] MEDICARE SUPPLEMENT Care Teams Cessation Systems Outreach Specialist Relationship Specialty Start Date End Date Amalia Leyva NP [address] [place] [address] PCP - General Nurse Practitioner 06/05/23
--- OUTSIDE RECORDS SUMMARY | 2024-07-23 11:38 | XMS_ITS | Clinical Summary ---
Author Organization [facility] [address] Address [address] [place] [address] Care Team Providers Care Prover Name Role Phone Amalia Leyva NP Primary [...] Comments Blood Pressure 118/60 02/15/2024 10:40 AM LEARNING CONSULTANT Pulse 88 02/15/2024 10:40 AM LEARNING CONSULTANT Temperature - - Respiratory Rate - - Oxygen Saturation 98% 02/15/2024 10:40 AM LEARNING CONSULTANT Inhaled Oxygen Concentration - - Weight 66.2 kg (146 lb) 02/15/2024 10:40 AM LEARNING CONSULTANT Height 154.9 cm (5' 1) 02/15/2024 10:40 AM LEARNING CONSULTANT Body Mass Index 27.59 02/15/2024 10:40 AM LEARNING CONSULTANT Plan of Treatment Health Maintenance Due Date Last Done Comments Depression Screening 1941 Fall Risk Assessment 1941 Osteoporosis Screening-Bone Density Scan 1941 Hepatitis B Screening 12/26/1959 Pneumococcal vaccine 65+ (1 of 1 - PCV) 12/26/1991 Zoster Vaccine (1 of 2) 12/26/1991 Well Visit 65+ 2006 DTaP/Tdap/Td Vaccine (2 - Td or Tdap) 10/03/202307/2013 Influenza Vaccine (Season Ended) 2024 Insurance MEDICARE [facility] MEDICARE SUPPLEMENT Member Subscriber Plan / Payer (Ef fective 2020-Present) Name:Dianne Delong Relation to Subscriber:Self Name:Dianne Delong Payer ID:[id number] Group ID:[id number] Type:COMMERCIAL Address: [address] [place] [id number] Care Teams Prover Relationship Specialty Start Date End Date Amalia Leyva NP [address] [place] [address] PCP - General Nurse Practitioner 06/05/23
--- OUTSIDE RECORDS SUMMARY | 2024-07-23 11:38 | XMS_ITS | Continuity of Care Document ---
Author Organization [facility] Address [address] [place] [address] Phone Care Team Providers Care Superior Court Judge Name Role Phone Reymundo JACKY Sy Unavailable [...] Copied on Encounter Office/outpa tient visit,est, mod [facility], [address] [place] [address], [id number], tel:[phone] [facility] knee (chief complaint) Pain in right kneeBody mass index (BMI) 31.0-31.9, adultEncounter for exam of blood pressure w/o abnormal findingsPresence of right artificial knee joint Oct- 3 Reymundo Dan. [address] [place] [address], [id number] , [place]. tel:[phone] Referring Provider: Sy Dwyer, [address] [place], [address] . tel:[phone] [facility], [address] [place] [address], [id number], tel:[phone] [facility] No Information 3 Reymundo Dan. [address] [place] [address], [id number] , [place]. tel:[phone] Referring Provider: Ramin Bowman, [address] [place] [address], [id number] . tel:[phone] [facility], [address] [place] [address], [id number], tel:[phone] [facility] ankle (chief complaint) Presence of right artificial knee joint 3 Reymundo Dan. [address], [place], [id number] , . tel:[phone] Referring Provider: Sy Dwyer, [address] [place], [address] . tel:[phone] [facility], [address] [place] [address], [id number], tel:[phone] [facility] knee (chief complaint) Postoperative wound infection 3 Reymundo Dan. [address], [place], [id number] , [place]. tel:[phone] Referring Provider: Sy Dwyer, [address] [place], [address] . tel:[phone] [facility], [address] [place] [address], [id number], tel:[phone] [facility] No Information 3 Jairo Faustin. [address] [place] [address], [id number] , [place]. tel:[phone] [facility], [address] [place] [address], [id number], [place] tel:[phone] [facility] knee (chief complaint) Pain in right kneeStatus post total right knee replacement 3 Reymundo Dan. [address], [place], [id number] , . [phone] Referring Provider: Sy Dwyer, [address] [place], [address] . tel:[phone] [facility], [address] [place] [address], [id number], [place] tel:[phone] [facility] No Information 3 Reymundo Sy. [address] [place] [address], [id number] , . tel:[phone] Referring Provider: Ramin Bowman, [address] [place], [address] . tel:[phone] [facility], [address] [place] [address], [id number], tel:[phone] [facility] No Information 3 Jairo Faustin. [address] [place] [address], [id number] , . tel:[phone] Referring Provider: Ramin Bowman, [address] [place] [address], [id number] . tel:[phone] [facility], [address] [place] [address], [id number], tel:[phone] [facility] No Information 3 Reymundo Dan. [address] [place] [address], [id number] , . tel:[phone] Referring Provider: Ramin Bowman, [address] [place] [address], [address] . tel:[phone] [facility], [address] [place] [address], [id number], tel:[phone] [facility] Primary osteoarthritis of right knee 3 Jairo Faustin. [address] [place] [address], [id number] , [place]. tel:[phone] Office/outpa tient visit,est, mod [facility], [address] [place] [address], [id number], tel:[phone] [facility] knee (chief complaint) Primary osteoarthritis of right kneePain in right knee Apr- 3 Reymundo Dan. [address] [place] [address], [id number] , [place]. tel:[phone] Referring Provider: Sy Dwyer, [address] [place] [address], [id number] . tel:[phone] Office/outpa tient visit,est, mod [facility], [address] [place] [address], [id number], tel:[phone] [facility] lumbar spine (chief complaint) Closed compression fracture of thoracic vertebra, 9 Vimal Villasenor. [address], [place], [id number] , . tel:[phone] [facility], [address] [place] [address], [id number], tel:[phone] [facility] lumbar spine (chief complaint) Closed compression fracture of thoracic vertebra, May-0 9 Vimal Villasenor. [address], [place], [id number] , . tel:[phone] [facility], [address] [place] [address], [id number], tel:[phone] [facility] No Information 9 Vimal Villasenor. [address], [place], [id number] , . tel:[phone] Referring Provider: Hamilton Riley, [address] [place] [address], [id number] . tel:[phone] Office/outpa tient visit,[facility], [address] [place] [address], [id number], tel:[phone] [facility] thoracic spine pain (chief complaint) Midline low back pain, with sciatica presence unspecifiedClosed compression fracture of thoracic vertebra, initial encounterClosed compression fracture of thoracic vertebra,Closed compression fracture of thoracic vertebra,Closed compression fracture of thoracic vertebra,Closed compression fracture of thoracic vertebra,Encounte r for other preprocedural examinationCollap sed vertebra of thoracic region, initial encounter for fracture 9 Rubén Strickland. [address] [place] [address], [id number] , [place]. tel:[phone] Office/outpa tient visit,[facility], [facility], [address] [place] [address], [id number], tel:[phone] [facility] Arthritis Knee Localized Primary (osteoarthritis)M ed Meniscus/Derang(O ld) - Unspecified 3 Marco A goins. [address] [place] [address], [id number], [place]. tel:[phone] Office/outpa tient visit,new, [facility], [address], [place], [id number], tel:[phone] [facility] Pain In LimbArthritis Knee Localized Primary (osteoarthritis) 3 Marco A Ojeda briseida. [address] [place], [address], . tel:[phone] Referring Provider: Avinash Adrian, [address] [place], [address] . tel:[phone] Family History Family Member Type Diagnosis Age At Onset Problem (finding) Family history of coronary arteriosclerosis Problem (finding) Family history of strok e Problem (finding) Family history of Cance r, unknown Payers Payer name Insurance type Covered green party ID Authoriza tion(s) [place] MB [id number] BCBS [facility] [id number] Social History Type Description Quantity Date Captured [...] Radiology Order Kn ee Xray 3 Views ([id number]), Ordered on: Ordered Future Order: Radiology Order Kn ee Xray 3 Views ([id number]), Ordered on: Ordered Future Order: Radiology Order Kn ee Xray 3 Views ([id number]), Ordered on: Ordered History Of Present Illness [...]
== END 2024-07-23 11:33 | disposition home or self-care (01) ==
PROVIDERS: PCP Nurse Practitioner Family; Visit Provider Nurse Practitioner Adult Health
DX: S32.010A Wedge compression fracture of first lumbar vertebra, initial encounter for closed fracture (principal); X58.XXXA Exposure to other specified factors, initial encounter
CPT/HCPCS: 72100

== ENCOUNTER 2024-09-06 08:08 | Emergency (ER) | payer MEDICARE, SELFPAY ==
--- NOTE | ~2024-09-06 | CT_ITS ---
History: Fall PROCEDURE: CT cervical spine without intravenous contrast. COMPARISON: 05/07/2024 TECHNIQUE: Multiple contiguous axial images of the cervical spine were performed without the administration of i ntravenous contrast. DLP: 123 mGy-cm FINDINGS: Moderate kyphosis is redemonstrated. Significant degenerative disease is identified with osteophyte formation, disc space narrowing, endpl ate changes, ankylosis of L3/C4, and significant facet arthropathy. No acute fractures are present. The bilateral lung apices are unremarkable. No soft tissue abnormality is appreciated. The airway is patent. Impression: Degenerative disease, without acute fracture. Reviewed, dictated and finalized at location A. Impression: Degenerative disease, without acute fracture.
--- NOTE | ~2024-09-06 | CT_ITS ---
History: Fall PROCEDURE: CT head without contrast. COMPARISON: 05/07/2024 TECHNIQUE: Axial imaging of the head performed from the skull base to the vertex without IV contrast. Sagittal a nd coronal reformations obtained. DLP: 681 mGy-cm FINDINGS: The ventricles are enlarged. The dilatation of the ventricles is proportional to the degree of sulcal prominence, not uncommon in the senescent brain. Decreased attenuation is identified within the periventricular white matter, likely secondary to micr ovascular ischemic disease, in a patient of this age. There is no mass, mass effect or midline shift. There is no abnormal extra-axial fluid collection or intracranial hemorrhage. Visualized paranasal sinuses are clear. The mastoid air cells are well aerated. Large left frontoparietal scalp hematoma. No acute displaced fractures within the overlying cranium. Impression: Scalp hematoma without acute intracranial hemorrhage or suspicious mass effect. Reviewed, dictated and finalized at location A. Impression: Scalp hematoma without acute intracranial hemorrhage or suspicious mass effect.
[2024-09-06 08:08] VITALS: BP 154/59; PULSE 64; RESP 16; TEMP 36.4; O2SAT 98
--- OUTSIDE RECORDS SUMMARY | 2024-09-06 08:23 | XMS_ITS | Clinical Summary ---
Author Organization [facility] [address] Address [address] [place] [address] Care Team Providers Care Circular Ripsaw Operator Name Role Phone FelisarobertoVenessa buck JUNE Primary Care Provider Allergies Active Allergy Reactions Criticality Noted Date Comments Codeine Rash Medium 08/18/2023 Medications FeroSuL 325 mg (65 mg iron) tablet 4 Active furosemide (LASIX) 40 mg tablet 4 Active metoprolol XL (TOPROL-XL) 25 mg extended release tablet 4 Active pravastatin (PRAVACHOL) 10 mg tablet 4 Active triamterene-hyd roCHLOROthiazid e 37.5-25 mg per capsule TAKE 1 CAPSULE BY MOUTH ONCE DAILY IN THE MORNING 4 Active rivaroxaban (XARELTO) 20 mg tablet Take 1 tablet (20 mg total) by mouth daily with dinner 30 tablet 11 4 Active potassium gluconate 550 mg (90 mg) tablet 1 tablet (550 mg total) Active aspirin 81 mg enteric coated tablet Take 1 tablet (81 mg total) by mouth daily Active loratadine (CLARITIN) 10 mg tablet Take 1 tablet (10 mg total) by mouth daily Active bumetanide (BUMEX) 1 mg tablet Take 1 tablet (1 mg total) by mouth daily 90 tablet 1 5 Active vitamin b complex tablet Take 1 tablet by mouth daily Active calcium carbonate-vitam in D3 1,250 mg (500 mg elemental)-400 unit tablet Take by mouth Active nabumetone (RELAFEN) 750 mg tablet 4 07/02/20 25 Discontinue d(No longer taking - Do not display on AVS) calcium amino acid chelate 200 mg calcium tablet Take by mouth 08/29/19 25 Discontinue d(Alternate therapy) Active Problems Problem Noted Date Diagnosed Date Palpitations 08/18/2023 Hypertension 08/18/2023 Hyperlipidemia 08/18/2023 Encounters Date Type Department Care Team Description 08/28/2024 11:00 AM CDT Office Visit [facility] [address] [place] [id number] Rachael Moreno NP Palpitations (Primary Dx); Primary hypertension; Paroxysmal atrial fibrillation (HCC) from Last 3 Months Surgical History Surgery [...] Sign Reading Time Taken Comments Blood Pressure 124/50 08/28/2024 10:56 AM CDT Pulse 78 08/28/2024 10:56 AM CDT Temperature - - Respiratory Rate - - Oxygen Saturation 96% 08/28/2024 10:56 AM CDT Inhaled Oxygen Concentration - - Weight 62.6 kg (138 lb) 08/28/2024 10:56 AM CDT Height 154.9 cm (5' 1) 08/28/2024 10:56 AM CDT Body Mass Index 26.07 08/28/2024 10:56 AM CDT Plan of Treatment Health Maintenance Due Date Last Done Comments Depression Screening 1941 Fall Risk Assessment 1940 Osteoporosis Screening-Bone Density Scan 1940 Hepatitis B Screening 12/26/1959 Pneumococcal vaccine 65+ (1 of 1 - PCV) 12/26/1991 Zoster Vaccine (1 of 2) 12/26/1991 Well Visit 65+ 2006 DTaP/Tdap/Td Vaccine (2 - Td or Tdap) 10/03/202307/2013 Influenza Vaccine (#1) 2024 Insurance MEDICARE [facility] MEDICARE SUPPLEMENT Care Teams Circular Ripsaw Operator Relationship Specialty Start Date End Date Venessa Atkins NP [address] [place] [address] PCP - General Family Medicine 08/28/24
--- OUTSIDE RECORDS SUMMARY | 2024-09-06 08:23 | XMS_ITS | Referral Summary ---
Author Organization [facility] [address] [facility] [address] Address [address] [place] [address] Care Team Providers Care Photo Booth Operator Name Role Phone Wilbert Venessa WATKINS Primary Care Provider Encounters Date Type Department Care Team Description 08/28/2024 11:00 AM CDT Office Visit [facility] [address] [place] [address] Rachael Moreno NP Palpitations (Primary Dx); Primary hypertension; Paroxysmal atrial fibrillation (HCC) from Last 3 Months Allergies Active Allergy [...] Active nabumetone (RELAFEN) 750 mg tablet 4 08/29/19 25 Discontinue d(No longer taking - Do [...] 08/28/2024 10:56 AM CDT Plan of Treatment Not on file Insurance MEDICARE [facility] MEDICARE SUPPLEMENT Care Teams Photo Booth Operator Relationship Specialty Start Date End Date Venessa Atkins NP [address] [place] [address] PCP - General Family Medicine 08/28/24
--- NOTE | 2024-09-06 09:36 | ED_ITS ---
HPI - Fall General Chief Complaint: Fall Stated Complaint: fall Time Seen by Provider: 09/06/24 08:16 History of Present Illness HPI Narrative: Patient is an 83-year-old female with dementia who presents ER after having a fall. Struck her head. Has laceration to the posterior scalp and some bleeding. She is on Xarelto. Very pleasant. Has no other reports of pain. Related Data Home Medications ?Medication ?Instructions ?Recorded ?Confirmed ?Last Taken ?Type aspirin 81 mg tablet,delayed 81 mg PO DAILY 05/07/24 07/24/24 05/06/24 History release (Adult Aspirin Regimen) bumetanide 1 mg tablet 1 mg PO DAILY 05/07/24 07/24/24 05/06/24 History calcium carb, citrate, malate 1,200 mg PO DAILY 05/07/24 07/24/24 05/06/24 History ferrous sulfate 325 mg (65 mg 325 mg PO DAILY 05/07/24 07/24/24 05/06/24 History iron) tablet (FeroSul) fluconazole 150 mg tablet 150 mg PO DAILY 05/07/24 07/24/24 05/06/24 History loratadine 10 mg capsule 10 mg PO DAILY 05/07/24 07/24/24 05/06/24 History metoprolol succinate 25 mg 25 mg PO DAILY 05/07/24 07/24/24 05/06/24 History tablet,extended release 24 hr potassium 75 mg tablet 575 mg PO DAILY 05/07/24 07/24/24 05/06/24 History pravastatin 10 mg tablet 10 mg PO DAILY 05/07/24 07/24/24 05/06/24 History rivaroxaban 20 mg tablet (Xarelto) 20 mg PO DAILY 05/07/24 07/24/24 05/06/24 History triamterene 37.5 1 cap PO DAILY 05/07/24 07/24/24 05/06/24 History mg-hydrochlorothiazide 25 mg capsule vitamin B complex 1 cap PO DAILY 05/07/24 07/24/24 05/06/24 History Allergies Allergy/AdvReac Type Severity Reaction Status Date / Time codeine Allergy Rash Verified 07/24/24 13:00 Sulfa (Sulfonamide Allergy Rash Verified 07/24/24 13:00 Antibiotics) Review of Systems Review of Systems: All systems reviewed & are unremarkable except as noted in HPI and below PMFSH Past Medical History Medical History (Updated 09/06/24 @ 18:53 by Reid Ernandez MD) Hyperlipidemia Hypertension Family History Family History (Updated 06/10/24 @ 15:19 by Judi Gaffney CMA) Father Heart disease Mother Breast cancer Cerebrovascular accident Sibling Breast cancer Social History Social History Smoking status: Never smoker Alcohol intake: never Substance use: never Do You Feel Safe in your Home?: Yes Lack of Transportation: No Lack of Food: Never True Current Housing: I Have Housing Concerned About Future Housing: No Difficulty Paying Gas/Electric Bills: No Difficulty Paying for Meds: No Currently Unemployed: No Education: Bachelor's Degree Difficulty w/ Childcare or Family Care: No Spiritual care concerns: No Exam Narrative: GENERAL: Well-appearing, well-nourished, and in no acute distress. HEAD: Normocephalic, posterior scalp hematoma with 1.5 cm laceration EYES: PERRL and EOMI. ENT: Mucous membranes moist. NECK: Supple. No midline tenderness. CHEST: Clear to auscultation. No respiratory distress. HEART: Regular rate and rhythm. Normal peripheral pulses. ABDOMEN: Soft, nontender, nondistended. EXTREMITIES: Normal range of motion. No edema. NEURO: Awake alert, moves all extremities. PSYCH: Normal mood and affect. Course Course Emergency Course: Resting comfortably. Informed of results. Discharge home. Vital Signs Vital signs: Vital Signs Temperature 97.6 F 09/06/24 08:08 Pulse Rate 64 09/06/24 08:08 Respiratory Rate 16 09/06/24 08:08 Blood Pressure 154/59 H 09/06/24 08:08 Pulse Oximetry 98 09/06/24 08:08 Oxygen Delivery Room Air 09/06/24 08:08 Temperature 97.8 F 09/06/24 09:50 Pulse Rate 67 09/06/24 09:50 Respiratory Rate 16 09/06/24 09:50 Blood Pressure 120/62 09/06/24 09:50 Pulse Oximetry 99 09/06/24 09:50 Oxygen Delivery Room Air 09/06/24 08:08 Procedures Laceration Laceration 1: Date: 09/06/24 Time: 09:36 Site: scalp Size (cm): 1.5 Description: linear Pre-repair: irrigated extensively and minor debridement ====== Skin Level ====== Skin layer closed with: leonor Number of sutures: 2 ====== Subcutaneous Layer ====== ====== Muscle Layer ====== ====== Tendon Layer ====== MDM - Fall Imaging Data Radiologist's impression: ITS Impressions Head CT 09/06/24 08:36 Impression: Scalp hematoma without acute intracranial hemorrhage or suspicious mass effect. Cervical Spine CT 09/06/24 08:58 Impression: Degenerative disease, without acute fracture. Discharge Plan Discharge Clinical Impression: Hematoma of occipital region of scalp, Laceration of scalp Patient Disposition: Home Condition: Stable Instructions: Antibiotic Form, Staple Care (ED) Additional Instructions: Return the ER if you have recurrent falls, your wound is red and hot and draining pus, or you have additional concerns. Patient Language: Faroese Prescriptions: No Action bumetanide 1 mg tablet 1 mg PO DAILY ferrous sulfate [FeroSul] 325 mg (65 mg iron) tablet 325 mg PO DAILY fluconazole 150 mg tablet 150 mg PO DAILY triamterene-hydrochlorothiazid 37.5-25 mg capsule 1 cap PO DAILY pravastatin 10 mg tablet 10 mg PO DAILY metoprolol succinate 25 mg tablet extended release 24 hr 25 mg PO DAILY Xarelto 20 mg tablet 20 mg PO DAILY calcium carb, citrate, malate 250 mg calcium capsule 1,200 mg PO DAILY aspirin [Adult Aspirin Regimen] 81 mg tablet,delayed release (DR/EC) 81 mg PO DAILY potassium 75 mg tablet 575 mg PO DAILY loratadine 10 mg capsule 10 mg PO DAILY vitamin B complex Capsule 1 cap PO DAILY Follow-up/Referrals: Pendegrahuseyin,STEPHEN Clifford [Primary Care Provider] - 1 Week
[2024-09-06 09:50] VITALS: BP 120/62; PULSE 67; RESP 16; TEMP 36.6; O2SAT 99
== END 2024-09-06 10:02 | disposition home or self-care (01) ==
PROVIDERS: Emergency Provider Emergency Medicine; PCP Nurse Practitioner Family
DX: S01.01XA Laceration without foreign body of scalp, initial encounter (principal); F03.90 Unspecified dementia, unspecified severity, without behavioral disturbance, psychotic disturbance, mood disturbance, and anxiety; E78.5 Hyperlipidemia, unspecified; I10 Essential (primary) hypertension; M47.812 Spondylosis without myelopathy or radiculopathy, cervical region; W19.XXXA Unspecified fall, initial encounter
CPT/HCPCS: 12001; 70450; 72125; 99284

== ENCOUNTER 2024-10-14 12:43 | Emergency (ER) | payer MEDICARE, SELFPAY ==
[2024-10-14 12:49] VITALS: BP 134/52; PULSE 65; RESP 20; TEMP 37.1; O2SAT 95
--- NOTE | 2024-10-14 12:52 | ED_ITS ---
HPI - General Adult General Chief complaint: Extremity Problem,Nontraumatic Stated complaint: swollen ankles Time Seen by Provider: 10/14/24 12:53 Source: patient Mode of arrival: ambulatory Limitations: no limitations History of Present Illness HPI narrative: 83-year-old female with history of Afib, CKD4 presented for complaint of bilateral lower extremity swelling worsening over the past 2 days. Endorses itching to legs. Patient currently denies chest pain, palpitations, shortness of breath, fatigue or fever. Endorses decreased urinary output, with frequency. Patient takes triamterene HCTZ and bumetanide, patient is in between PCPs. She is accompanied by her son. Related Data Home Medications ?Medication ?Instructions ?Recorded ?Confirmed ?Last Taken ?Type aspirin 81 mg tablet,delayed 81 mg PO DAILY 05/07/24 07/24/24 05/06/24 History release (Adult Aspirin Regimen) bumetanide 1 mg tablet 1 mg PO DAILY 05/07/24 07/24/24 05/06/24 History calcium carb, citrate, malate 1,200 mg PO DAILY 05/07/24 07/24/24 05/06/24 History ferrous sulfate 325 mg (65 mg 325 mg PO DAILY 05/07/24 07/24/24 05/06/24 History iron) tablet (FeroSul) fluconazole 150 mg tablet 150 mg PO DAILY 05/07/24 07/24/24 05/06/24 History loratadine 10 mg capsule 10 mg PO DAILY 05/07/24 07/24/24 05/06/24 History metoprolol succinate 25 mg 25 mg PO DAILY 05/07/24 07/24/24 05/06/24 History tablet,extended release 24 hr potassium 75 mg tablet 575 mg PO DAILY 05/07/24 07/24/24 05/06/24 History pravastatin 10 mg tablet 10 mg PO DAILY 05/07/24 07/24/24 05/06/24 History rivaroxaban 20 mg tablet (Xarelto) 20 mg PO DAILY 05/07/24 07/24/24 05/06/24 History triamterene 37.5 1 cap PO DAILY 05/07/24 07/24/24 05/06/24 History mg-hydrochlorothiazide 25 mg capsule vitamin B complex 1 cap PO DAILY 05/07/24 07/24/24 05/06/24 History Allergies Allergy/AdvReac Type Severity Reaction Status Date / Time codeine Allergy Rash Verified 10/14/24 12:50 Sulfa (Sulfonamide Allergy Rash Verified 10/14/24 12:50 Antibiotics) Review of Systems Review of Systems: CONSTITUTIONAL: Denies body aches, fever, chills, or sweats. EYES: Denies visual changes CARDIOVASCULAR: Denies chest pain, palpitations, Reports bilateral lower extremity edema. RESPIRATORY: Denies cough or dyspnea. GASTROINTESTINAL: Denies abdominal pain, nausea, vomiting, or diarrhea. GENITOURINARY: reports decreased urinary output Denies dysuria or hematuria. SKIN: Denies rash, or wounds. MUSCULOSKELETAL: Denies back pain, joint pain, or myalgia. NEUROLOGIC: Denies headache, numbness, tingling, or weakness. All systems reviewed & are unremarkable except as noted in HPI and below PMFSH Past Medical History Medical History (Updated 10/14/24 @ 13:52 by Em Mullins APRN) Afib CKD (chronic kidney disease) Hyperlipidemia Hypertension Family History Family History (Updated 06/10/24 @ 15:19 by Judi Gaffney [facility]) Father Heart disease Mother Breast cancer Cerebrovascular accident Sibling Breast cancer Social History Social History Smoking status: Never smoker Alcohol intake: never Substance use: never Do You Feel Safe in your Home?: Yes Lack of Transportation: No Lack of Food: Never True Current Housing: I Have Housing Concerned About Future Housing: No Difficulty Paying Gas/Electric Bills: No Difficulty Paying for Meds: No Currently Unemployed: No Education: Bachelor's Degree Difficulty w/ Childcare or Family Care: No Spiritual care concerns: No Comments At time of signature, I have reviewed and agree with nursing past medical, surgical, social and family history unless otherwise noted. Please see nursing chart for further information. There is no relevant family history pertinent to the presenting complaint Exam Narrative: GENERAL: Well-appearing and in no acute distress. EYES: Conjunctivae normal. ENT: Mucous membranes pink and moist. CHEST: No respiratory distress. Clear to auscultation. HEART: Regular rate and rhythm. No murmur appreciated. Normal peripheral pulses. ABDOMEN: Soft, nontender, nondistended, normal active bowel sounds. EXTREMITIES: BLE 4+ pitting edema from mid lower leg to foot, RLE with fluid filled blister and mild erythema to distal leg. Evidence of scratching with s cabs and superficial abrasions to legs bilaterally. Uses rollator. SKIN: Warm, dry, Capillary refill normal. Normal skin turgor. NEURO: Alert and oriented x3. PSYCH: Normal affect. Course Course Emergency Course: Patient is aware of diagnosis, understands and agrees to treatment plan. Anti cipatory guidance given. Patient agrees to follow-up as directed and is aware of reasons to seek care at the emergency department. Portions of this record may have been created with voice recognition software Level of Care: Express Care Visit Vital Signs Vital signs: Vital Signs Temperature 98.7 F 10/14/24 12:49 Pulse Rate 65 10/14/24 12:49 Respiratory Rate 20 10/14/24 12:49 Blood Pressure 134/52 L 10/14/24 12:49 Pulse Oximetry 95 10/14/24 12:49 Oxygen Delivery Room Air 10/14/24 12:49 Temperature 98.7 F 10/14/24 12:49 Pulse Rate 65 10/14/24 12:49 Respiratory Rate 20 10/14/24 12:49 Blood Pressure 134/52 L 10/14/24 12:49 Pulse Oximetry 95 10/14/24 12:49 Oxygen Delivery Room Air 10/14/24 12:49 Transfer Transfered to: [place] Transportation: Other ( Private vehicle) Transfer rationale: Pt is agreeable to transfer. Requests transfer to [facility] via p rivate vehicle. Risks of transportation reviewed with pt including injury, worsening of condition and . v/u. son will be driving pt; Report called to hospital, spoke with Dr Ortiz, accepting physician. Pt is in stable condition at time of transfer. Advised to remain NPO and go directly to the hospital. Medical Decision Making MDM Narrative Medical decision making narrative: Discussed physical exam findings. advised ER transfer for further evaluation of increased BLE edema. VSS . Patient is in between PCPs. Request [facility]. Differential Diagnosis Differential Diagnosis: DVT, CHF, PVD, venous insufficiency, medication related, renal failure, gravitational edema, cellulitis Vital Signs Vital Signs: Vital Signs Temperature 98.7 F 10/14/24 12:49 Pulse Rate 65 10/14/24 12:49 Respiratory Rate 20 10/14/24 12:49 Blood Pressure 134/52 L 10/14/24 12:49 Pulse Oximetry 95 10/14/24 12:49 Oxygen Delivery Room Air 10/14/24 12:49 Temperature 98.7 F 10/14/24 12:49 Pulse Rate 65 10/14/24 12:49 Respiratory Rate 20 10/14/24 12:49 Blood Pressure 134/52 L 10/14/24 12:49 Pulse Oximetry 95 10/14/24 12:49 Oxygen Delivery Room Air 10/14/24 12:49 reviewed Discharge Plan Discharge Clinical Impression: Leg edema Patient Disposition: Acute Care Hospital Condition: Stable Instructions: Antibiotic Form Patient Language: Croatian Prescriptions: No Action bumetanide 1 mg tablet 1 mg PO DAILY ferrous sulfate [FeroSul] 325 mg (65 mg iron) tablet 325 mg PO DAILY fluconazole 150 mg tablet 150 mg PO DAILY triamterene-hydrochlorothiazid 37.5-25 mg capsule 1 cap PO DAILY pravastatin 10 mg tablet 10 mg PO DAILY metoprolol succinate 25 mg tablet extended release 24 hr 25 mg PO DAILY Xarelto 20 mg tablet 20 mg PO DAILY calcium carb, citrate, malate 250 mg calcium capsule 1,200 mg PO DAILY aspirin [Adult Aspirin Regimen] 81 mg tablet,delayed release (DR/EC) 81 mg PO DAILY potassium 75 mg tablet 575 mg PO DAILY loratadine 10 mg capsule 10 mg PO DAILY vitamin B complex Capsule 1 cap PO DAILY Follow-up/Referrals: PHYSICIAN,SAUSAGE WRAPPER [Primary Care Provider] - Time of Disposition: 13:51
== END 2024-10-14 13:50 | disposition short-term general hospital (02) ==
PROVIDERS: Emergency Provider Nurse Practitioner Family
DX: R60.0 Localized edema (principal); I48.91 Unspecified atrial fibrillation; N18.4 Chronic kidney disease, stage 4 (severe); Z79.01 Long term (current) use of anticoagulants; E78.5 Hyperlipidemia, unspecified; I12.9 Hypertensive chronic kidney disease with stage 1 through stage 4 chronic kidney disease, or unspecified chronic kidney disease; Z79.82 Long term (current) use of aspirin
CPT/HCPCS: 99212; G0463

== ENCOUNTER 2024-10-14 14:16 | Emergency (ER) | payer MEDICARE, SELFPAY ==
--- NOTE | ~2024-10-14 | US_ITS ---
EXAMINATION:US venous doppler LE BI INDICATION:Lower extremity edema. TECHNIQUE: Multiple grayscale, color flow and Doppler images of the bilateral lower extremity deep ve nous systems were obtained and reviewed. COMPARISON: 10/13/2024 FINDINGS: The common femoral, superficial femoral and popliteal veins demonstrate normal respiratory variation, augmentation and compressibility. Color flow is also seen within the posterior tibial, pe roneal, greater saphenous and profunda veins. IMPRESSION: 1: No lower extremity deep venous thrombosis. Reviewed, dictated and finalized at location A.
--- NOTE | ~2024-10-14 | XR_ITS ---
EXAMINATION: XR chest 2V 10/14/2024 17:09 INDICATION: Lower extremity edema COMPARISON: 05/07/2024 FINDINGS: Heart is mildly enlarged, unchanged. No pneumothorax. No pleural effusion. No free air the diaphragm. No focal pulmonary consolidation. Kyphoplasty in the thoracic spine. Compression fracture in the upper lumbar spine similar to the lumbar spine x-ray from 07/23/2024 IMPRESSION: 1: NO ACUTE CARDIOPULMONARY DISEASE. Reviewed, dictated and finalized at location A.
[2024-10-14 14:44] VITALS: BP 130/56; PULSE 74; RESP 18; TEMP 36.7; O2SAT 97
--- OUTSIDE RECORDS SUMMARY | 2024-10-14 15:19 | XMS_ITS | Clinical Summary ---
Author Organization [facility] [address] Address [address] [place] [address] Care Team Providers Care Binder And Box Builder Name Role Phone FelisarobertoVenessa buck JUNE Primary Care Provider [phone] Allergies Active Allergy Reactions Criticality Noted Date Comments Codeine Rash Medium 08/18/2023 Medications FeroSuL 325 mg (65 mg iron) tablet 08/03/2023 Active furosemide (LASIX) 40 mg tablet 07/24/2023 Active metoprolol XL (TOPROL-XL) 25 mg extended release tablet 08/14/2023 Acti ve pravastatin (PRAVACHOL) 10 mg tablet 08/08/2023 Active triamterene-hyd roCHLOROthiazid e 37.5-25 mg per capsule TAKE 1 CAPSULE BY MOUTH ONCE DAILY IN THE MORNING 05/15/2023 Active potassium gluconate 550 mg (90 mg) [...] mouth daily 90 tablet 1 06/17/2024 Active vitamin b complex tablet Take 1 tablet by mouth daily Active calcium carbonate-vitam in D3 1,250 mg (500 mg elemental)-400 unit tablet Take by mouth Active rivaroxaban (Xarelto) 20 mg tablet TAKE 1 TABLET BY MOUTH ONCE DAILY WITH DINNER 90 tablet 3 09/10/2024 Active Active Problems Problem Noted Date Diagnosed Date Palpitations 08/18/2023 Hypertension 08/18/2023 Hyperlipidemia 08/18/2023 Encounters Date Type Department Care Team Description 08/28/2024 11:00 AM CDT Office Visit [facility] Cardiology [address] [place] [address] Rachael Moreno NP Palpitations (Primary [...] 10/03/202307/2013 Influenza Vaccine (#1) 2024 Insurance MEDICARE [facility] MEDICARE SUPPLEMENT Member Subscriber Plan / Payer (Ef fective 2020-Present) Name:Dianne Delong Relation to Subscriber:Self Name:Dianne Delong Payer ID:[id number] Group ID:[id number] Type:COMMERCIAL Address: [facility] [address] [place] [id number] Care Teams Binder And Box Builder Relationship Specialty Start Date End Date Venessa Atkins NP [address] [place] [address] PCP - General Family Medicine 08/28/24
--- OUTSIDE RECORDS SUMMARY | 2024-10-14 15:19 | XMS_ITS | Patient Health Record ---
Author Organization [facility] Address [address] [place] [id number] Care Team Providers Care Cocoa Bean Roaster Helper Name Role Phone Venessa Atkins Primary Care Provider [phone] JULIO C VARGAS Unavailable [phone] ASHLEIGH CARDENASANDA Unavailable [phone] Swati Durbin Unavailable [phone] Allergies Allergen (clinical drug ingredient) Drug/Non Drug Allergy documented on EMR Reaction Allergy Type Onset Date Status Chocolate Concentrate Unknown Drug Allergy Active Blue Dyes (Parenteral) Unknown Drug Allergy Active caffeine Caffeine Unknown Drug Allergy Active codeine Codeine Unknown Drug Allergy Active Substance with sulfonamide structure and antibacterial mechanism of action (substance) Sulfa Antibiotics Unknown Drug Allergy Active tramadol Tramadol Unknown Drug Allergy Active Results Component Value Reference Range Notes Basic Metabolic Panel (8) Reviewed date:05/17/2024 11:48:22 AM Interpretation: Performing Lab: Notes/Report: UA W REFLEX TO CX Reviewed date:05/13/2024 02:21:12 PM Interpretation: Performing Lab: Notes/Report: Reason For Referral Reason CKD Diagnosis 1 Chronic kidney disea se, unspecified (N18.9) Referral Organization [facility] Referring Provider First Name Venessa Referring Provider Last Name Felisadelphine Referred Organization [facility] Referred Address [address] [place], [place], Referred Provider Specialty Nephrology General Notes Sydney Hair 025 10:27:58 AM >email sent requesting docs 06/11/24Johnathon Jenny 07/29/2024 01:21:34 PM CDT >Patient's son has not scheduled appointment, Brenda Diego 08/13/2024 12:45:51 PM CDT >Nurse stated patient went but she is unsure where. Referral Priority Routine Medications Medication SIG (Take, Route, Frequency, Duration) Notes Start Date End Date Status Gentamicin-prednisoLONE Acet 0.3-0.6 % Ointment as directed Ophthalmic daily Unknown Loratadine 10 MG Tablet 1 tablet Orally Once a day Unknown Nabumetone 750 MG Tablet 1 tablet Orally twice daily Unknown Mupirocin 2 % Ointment 1 application Ext ernally daily Unknown Pravastatin Sodium 10 MG Tablet 1 tablets Orally Once a day Unknown Potassium Gluconate 595 (99 K) MG Tablet 1 tablet Orally Once a day Unknown Calcium Carbonate 500 MG Tablet Chewable 1 tablet Orally daily Unk nown Ferrous Sulfate 325 (65 Fe) MG Tablet 1 tablet Orally once a day; Duration: 30 days Unknown Bumetanide 1 MG Tablet 1 tablet Orally O nce a day; Duration: 30 days Unknown Xarelto 20 MG Tablet 1 tablet with food Orally Once a day Unknown Triamterene-HCTZ 37.5-25 MG Tablet 1 tablet in the morning Orally Once a day Unknown Metoprolol Succinate ER 25 MG Tablet Extended Release 24 Hour 1 tablet Orally Once a day; Duration: 30 days 07/31/2024 Unknown Social History Tobacco Use: Social History Observation Description Date Details (start date - stop date) Never Smoker NA - NA Social History Drug/Alcohol: Social Info Question Answer Notes Drugs Have you used drugs other than those for medical reasons in the past 12 months? No AUDIT-C (Standard) Did you have a drink containing alcohol in the past year? Yes How often did you have a drink containing alcohol in the past year? Monthly or less (1 point) How many drinks did you have on a typical day when you were drinking in the past year? 1 or 2 drinks (0 point) How often did you have six or more drinks on one occasion in the past year? Never (0 point) Points 1 Interpretation Negative Tobacco Use: Social Info Question Answer Notes Tobacco Control (Standard) Tobacco use: Nonsmoker Section Notes: non smoker non smoker non smoker non smoker non smoker Problems Problem Type SNOMED Code ICD Code Onset Dates Problem Status W/U Status Risk Notes Problem Anemia (705051731) Anemia, unspecified (D64.9) Active confirmed Problem Allergic rhinitis (76287835) Allergic rhinitis, unspecified (J30.9) Active confirmed Problem Chronic kidney disease (518545306) Chronic kidney disease, unspecified (N18.9) Active confirmed Problem Long-term current use of anticoagulant (310222065) halfway (current) use of anticoagulants (Z79.01) Active confirmed Problem Hyperlipidemia (21464106) Hyperlipidemia (E78.5) Active confirmed Problem Benign essential hypertension (9661423) Benign essential hypertension (I10) Active confirmed Problem Atrial fibrillation (75687481) Paroxysmal A-fib (I48.0) Active confirmed Problem Constipation (94085904) Constipation, acute (K59.00) Active confirmed Vital Signs Heart Rate 70 /min 09/20/2024 Temperature 97.8 degrees Fahrenheit 09/20/2024 Respiratory Rate 18 /min 09/20/2024 Blood pressure diastolic 70 mm Hg 09/20/2024 Blood pressure systolic 128 mm Hg 09/20/2024 Encounters Encounter Location Date Provider Diagnosis [address] [address] 04/15/2024 Venessa Pendegraft Benign essential hypertension I10 ; Hyperlipidemia E78.5 ; Paroxysmal A-fib I48.0 ; Anemia, unspecified D64.9 and Allergic rhinitis, unspecified J30.[address] [address] 05/13/2024 Venessa Pendegraft Benign essential hypertension I10 ; Hyperlipidemia E78.5 ; Paroxysmal A-fib I48.0 ; Anemia, unspecified D64.9 ; Allergic rhinitis, unspecified J30.9 ; Compression fracture of lumbar vertebra, unspecified lumbar vertebral level, initial encounter S32.000A and Constipation, acute K59.[address] [address] 07/28/2024 Swati Durbin Benign essential hypertension I10 ; Hyperlipidemia E78.5 ; Paroxysmal A-fib I48.0 ; Anemia, unspecified D64.9 ; Allergic rhinitis, unspecified J30.9 ; Compression fracture of lumbar vertebra, unspecified lumbar vertebral level, initial encounter S32.000A and Constipation, acute K59.[address] [address] 09/20/2024 Swati Durbin Benign essential hypertension I10 ; Hyperlipidemia E78.5 ; Paroxysmal A-fib I48.0 ; Anemia, unspecified D64.9 ; Allergic rhinitis, unspecified J30.9 ; Compression fracture of lumbar vertebra, unspecified lumbar vertebral level, initial encounter S32.000A and Constipation, acute K59.00 [facility] [address] [place] [address] 04/09/2024 Venessa Pendegraft [facility] [address] [place] [address] 04/26/2024 Venessa Pendegraft [facility] [address] [phone] 04/29/2024 Venessa Pendegraft [facility] [address] [place] [address] 04/29/2024 Venessa Pendegraft [facility] [address] [address] 04/30/2024 Venessa Pendegraft [facility] [address] [id number] 05/02/2024 Venessa Pendegraft [facility] [address] [place] [address] 05/13/2024 Venessa Pendegraft [facility] [address] [place] [address] 06/11/2024 Venessa Pendegraft [facility] [address] [phone] 06/18/2024 Venessa Pendegraft [facility] [address] [place] [address] 06/24/2024 Venessa Pendegraft [facility] [address] [place] [address] 07/01/2024 Venessa Pendegraft [facility] [address] [place] [address] 07/07/2024 Venessa Pendegraft [facility] [address] [phone] 07/17/2024 JULIO C VARGAS [facility] [address] [place] [address] 07/31/2024 JULIO C VARGAS [facility] [address] [place] [address] 09/09/2024 [facility] [address] [phone] 09/10/2024 [facility] [address] [phone] 09/10/2024 JAMAR Blackmant [facility] [address] [place] [address] 09/11/[address] [address] 09/20/2024 Swati Durbin Assessments Encounter Date Diagnosis (ICD Code) Assessment Notes Treatment Notes Treatment Clinical Notes Section Notes 04/15/2024 Hyperlipidemia (ICD-10 - E78.5) chronic/stable continue pravastatin 04/15/2024 Benign essential hypertension (ICD-10 - I10) chronic/stable Continue triam/hctz metoprolol 05/13/2024 Hyperlipidemia (ICD-10 - E78.5) chronic/stable continue pravastatin 05/13/2024 Benign essential hypertension (ICD-10 - I10) chronic/stable Continue triam/hctz metoprolol bumex 07/28/2024 Benign essential hypertension (ICD-10 - I10) chronic/stable Continue triam/hctz metoprolol bumex 09/20/2024 Benign essential hypertension (ICD-10 - I10) chronic/stable Continue triam/hctz metoprolol reviewed and stable 09/20/2024 Hyperlipidemia (ICD-10 - E78.5) chronic/stable continue pravastatin 07/28/2024 Hyperlipidemia (ICD-10 - E78.5) chronic/stable continue pravastatin 05/13/2024 Paroxysmal A-fib (ICD-10 - I48.0) chronic/stable Continue xarelto 04/15/2024 Paroxysmal A-fib (ICD-10 - I48.0) chronic/stable Continue xarelto 05/13/2024 Anemia, unspecified (ICD-10 - D64.9) chronic/stable continue fe 07/28/2024 Paroxysmal A-fib (ICD-10 - I48.0) chronic/stable Continue xarelto pt is at fall/bleeding risk 04/15/2024 Anemia, unspecified (ICD-10 - D64.9) chronic/stable continue fe 09/20/2024 Paroxysmal A-fib (ICD-10 - I48.0) chronic/stable Continue xarelto pt is at fall/bleeding risk 09/20/2024 Anemia, unspecified (ICD-10 - D64.9) chronic/stable continue fe 04/15/2024 Allergic rhinitis, unspecified (ICD-10 - J30.9) chronic/stable continue lortadine 07/28/2024 Anemia, unspecified (ICD-10 - D64.9) chronic/stable continue fe 05/13/2024 Allergic rhinitis, unspecified (ICD-10 - J30.9) chronic/stable continue lortadine 07/28/2024 Allergic rhinitis, unspecified (ICD-10 - J30.9) chronic/stable continue lortadine 05/13/2024 Compression fracture of lumbar vertebra, unspecified lumbar vertebral level, initial encounter (ICD-10 - S32.000A) acute Tylenol 500mg bid use oxycodone only if tylenol not holding pain PT to eval and treat 09/20/2024 Allergic rhinitis, unspecified (ICD-10 - J30.9) chronic/stable continue lortadine 07/28/2024 Compression fracture of lumbar vertebra, unspecified lumbar vertebral level, initial encounter (ICD-10 - S32.000A) stable Tylenol prn 09/20/2024 Compression fracture of lumbar vertebra, unspecified lumbar vertebral level, initial encounter (ICD-10 - S32.000A) stable Tylenol prn no acute c/o pain 05/13/2024 Constipation, acute (ICD-10 - K59.00) acute begin senna daily miralax 17gm prn daily 07/28/2024 Constipation, acute (ICD-10 - K59.00) no acute ssues today miralax 17gm prn 09/20/2024 Constipation, acute (ICD-10 - K59.00) no acute issues today miralax 17gm prn 04/15/2024 Other f/u in 3 months sooner if needed refer to facility EHR for most up to date medication list obtain CBC BMP TSH VIT D 05/13/2024 Other f/u at next routine visit or sooner if needed refer to facility EHR for most up to date medication list 07/28/2024 Other f/u at next routine visit or sooner if needed 09/20/2024 Other f/u at next routine visit or sooner if needed Plan Of Treatment No Information Insurance Providers Payer Name Payer Address Payer Phone Subscriber Number Group Number Insured Name Patient Relationship to Insured Coverage Start Date Coverage End Date [employer] [place] [address] [place] [id number] Dianne Delong Self - patient is the insured [facility] [address] [place] [address] [id number] CliffordDianne Self - patient is the insured Medical (General) History Medical History History ICD Code Cellulitis, unspecified L03.90 Bilateral lower extremity edema R60.0 Left arm weakness R29.898 History of fall Z91.81 Personal history of diseases of the skin and subcutaneous tissue Z87.2 halfway (current) use of anticoagulant s Z79.01 Pain in right leg M79.604 Left leg pain M79.605 Surgical History Surgery Date(Month/Year) cholecystectomy tonsillectomy
--- NOTE | 2024-10-14 15:49 | ED.EXTPRO ---
HPI - Extremity Problem General Chief complaint: Extremity Problem,Nontraumatic <Rebecca Romero PA-C - Last Filed: 10/15/24 10:06> Stated complaint: BLE swelling <Rebecca Romero PA-C - Last Filed: 10/15/24 10:06> Time Seen by Provider: 10/14/24 15:49 <Rebecca Romero PA-C - Last Filed: 10/15/24 10:06> Focused HPI: This is a 83 year old female that presents to the ER for bilateral lower extremity edema. Ongoing over the last month. Worsening over the last several days. Reports redness to the right lower legs with some wounds. Reports history of chronic kidney disease. No known history of CHF. Reports history of atrial fibrillation. Denies chest pain, shortness of breath. GENERAL: Elderly, well-nourished, and in no acute distress. HEAD: Normocephalic, atraumatic. CHEST: Clear to auscultation. ?No respiratory distress. HEART: Regular rate and rhythm.? NEURO: ?Alert and oriented x3. Patient screened in triage and initial orders placed.? ?Additional care and disposition to be based upon?diagnostic testing and treatment. <Rebecca Romero PA-C - Last Filed: 10/15/24 10:06> History of Present Illness HPI Narrative: Agree with HPI <Shukri Ortiz MD - Last Filed: 10/14/24 22:07> Related Data Home medications: Home Medications ?Medication ?Instructions ?Recorded ?Confirmed ?Last Taken ?Type aspirin 81 mg tablet,delayed 81 mg PO DAILY 05/07/24 07/24/24 05/06/24 History release (Adult Aspirin Regimen) bumetanide 1 mg tablet 1 mg PO DAILY 05/07/24 07/24/24 05/06/24 History calcium carb, citrate, malate 1,200 mg PO DAILY 05/07/24 07/24/24 05/06/24 History ferrous sulfate 325 mg (65 mg 325 mg PO DAILY 05/07/24 07/24/24 05/06/24 History iron) tablet (FeroSul) fluconazole 150 mg tablet 150 mg PO DAILY 05/07/24 07/24/24 05/06/24 History loratadine 10 mg capsule 10 mg PO DAILY 05/07/24 07/24/24 05/06/24 History metoprolol succinate 25 mg 25 mg PO DAILY 05/07/24 07/24/24 05/06/24 History tablet,extended release 24 hr potassium 75 mg tablet 575 mg PO DAILY 05/07/24 07/24/24 05/06/24 History pravastatin 10 mg tablet 10 mg PO DAILY 05/07/24 07/24/24 05/06/24 History rivaroxaban 20 mg tablet (Xarelto) 20 mg PO DAILY 05/07/24 07/24/24 05/06/24 History triamterene 37.5 1 cap PO DAILY 05/07/24 07/24/24 05/06/24 History mg-hydrochlorothiazide 25 mg capsule Held on 05/10/24. Instructions: Resume on 05/24/24. hold until BP is better and re evaluate vitamin B complex 1 cap PO DAILY 05/07/24 07/24/24 05/06/24 History <Rebecca Romero PA-C - Last Filed: 10/15/24 10:06> Allergies/Adverse reactions: Allergies Allergy/AdvReac Type Severity Reaction Status Date / Time codeine Allergy Rash Verified 10/14/24 18:14 Sulfa (Sulfonamide Allergy Rash Verified 10/14/24 18:14 Antibiotics) <Rebecca Romero PA-C - Last Filed: 10/15/24 10:06> Review of Systems Review of Systems: Gen.: Denies fevers or chills Eyes: Denies eye pain or visual change ENT: Denies congestion Respiratory: Denies shortness of breath or cough CV: Denies chest pain or palpitations GI: Denies abdominal pain nausea, emesis or diarrhea denies burning, urgency, frequency or hematuria Musculoskeletal: Denies back pain or muscle pain Neuro: Denies numbness, tingling, weakness or focal weakness Skin: Blisters to bilateral lower legs, left greater than right. Except as documented, all other systems reviewed and negative <Shukri Ortiz MD - Last Filed: 10/14/24 22:07> [facility] Past Medical History Medical History: Medical History Afib CKD (chronic kidney disease) Hyperlipidemia Hypertension <Rebecca Romero PA-C - Last Filed: 10/15/24 10:06> Family History Family History: Family History Father Heart disease Mother Breast cancer Cerebrovascular accident Sibling Breast cancer <Rebecca Romero PA-C - Last Filed: 10/15/24 10:06> Social History Social History: Social History Smoking status: Never smoker Alcohol intake: never Substance use: never Do You Feel Safe in your Home?: Yes Lack of Transportation: No Lack of Food: Never True Current Housing: I Have Housing Concerned About Future Housing: No Difficulty Paying Gas/Electric Bills: No Difficulty Paying for Meds: No Currently Unemployed: No Education: Bachelor's Degree Difficulty w/ Childcare or Family Care: No Spiritual care concerns: No <Rebecca Romero PA-C - Last Filed: 10/15/24 10:06> Exam Narrative: APPEARANCE: No acute distress, nontoxic, resting in bed EYES: EOMI HEENT: Normocephalic, atraumatic, OMM RESPIRATORY: No respiratory distress Clear to auscultation bilaterally with no rhonchi wheezing or rales. CARDIOVASCULAR: Regular rate and rhythm without murmurs rubs or gallops. ABDOMINAL: Soft, nontender, nondistended, no rebound or guarding MUSCULOSKELETAl: Moves all extremities. 2+ pitting edema to the bilateral lower extremities NEURO: Awake and alert. Following commands, speech normal, no focal deficits SKIN:: Erythema and warmth to the anterior aspect of the left lower leg PSYCHIATRIC: Normal affect/mood, <Shukri Ortiz MD - Last Filed: 10/14/24 22:07> Course Vital Signs Vital signs: Vital Signs Temperature 98.1 F 10/14/24 14:44 Pulse Rate 74 10/14/24 14:44 Respiratory Rate 18 10/14/24 14:44 Blood Pressure 130/56 L 10/14/24 14:44 Pulse Oximetry 97 10/14/24 14:44 Oxygen Delivery Room Air 10/14/24 14:44 Temperature 97.5 F L 10/14/24 18:11 Pulse Rate 95 10/14/24 20:21 Respiratory Rate 18 10/14/24 20:21 Blood Pressure 136/75 10/14/24 20:21 Pulse Oximetry 95 10/14/24 20:21 Oxygen Delivery Autopap 10/14/24 18:07 <Rebecca Romero PA-C - Last Filed: 10/15/24 10:06> Vital Signs Temperature 98.1 F 10/14/24 14:44 Pulse Rate 74 10/14/24 14:44 Respiratory Rate 18 10/14/24 14:44 Blood Pressure 130/56 L 10/14/24 14:44 Pulse Oximetry 97 10/14/24 14:44 Oxygen Delivery Room Air 10/14/24 14:44 Temperature 97.5 F L 10/14/24 18:11 Pulse Rate 95 10/14/24 20:21 Respiratory Rate 18 10/14/24 20:21 Blood Pressure 136/75 10/14/24 20:21 Pulse Oximetry 95 10/14/24 20:21 Oxygen Delivery Autopap 10/14/24 18:07 <Shukri Ortiz MD - Last Filed: 10/14/24 22:07> MDM - Extremity (Nontraumatic) MDM Narrative Medical decision making narrative: 83-year-old female presenting to the ED for leg swelling and redness. Initial vital signs stable. No leukocytosis. Mild anemia of 9.9. Mild hyponatremia. Stable CKD. BNP elevated at 1150. Venous Doppler bilateral lower extremity showed no evidence of DVT. Suspect patient does have a cellulitis. She will be given a prescription for doxycycline. She will be referred to primary care locally and she is seeking another primary care doctor. Patient and son were agreeable to this plan. Given strict return precautions. <Shukri Ortiz MD - Last Filed: 10/14/24 22:07> Differential Diagnosis Differential diagnosis: Likely cellulitis, superficial thrombophlebitis, lower extremity edema and other <Shukri Ortiz MD - Last Filed: 10/14/24 22:07> Lab Data Result diagrams: 10/14/24 18:15 10/14/24 18:15 <Rebecca Romero PA-C - Last Filed: 10/15/24 10:06> Labs: Lab Results 10/14/24 Range/Units 18:15 WBC 7.1 (4.5-10.0) K/mm3 RBC 3.48 L (4.2-5.4) M/mm3 Hgb 9.9 L (12.0-15.0) g/dL Hct 31.2 L (37.0-47.0) % MCV 89.7 (80-100) fl MCH 28.4 (26-34) pg MCHC 31.7 L (32-36) g/dl RDW 14.7 H (11.5-14.5) % Plt Count 314 (150-375) k/mm3 MPV 10.0 (7.4-10.4) fl Immature Gran % (Auto) 0.1 (0-0.5) % Neut % (Auto) 52.3 (45.5-73.1) % Lymph % (Auto) 19.6 (18.3-44.2) % Weston % (Auto) 10.1 H (2.6-8.5) % Eos % (Auto) 17.1 H (0-4.4) % Baso % (Auto) 0.8 (0.2-1.2) % Lymph # (Auto) 1.40 (0.9-3.2) K/mm3 Weston # (Auto) 0.7 H (0.1-0.6) K/mm3 Eos # (Auto) 1.2 H (0-0.3) K/mm3 Baso # (Auto) 0.1 (0.0-0.1) K/mm3 Abs Immat Gran (auto) 0.01 (0.00-0.031) K/mm3 Absolute Neuts (auto) 3.7 (1.3-6.7) K/mm3 Absolute Nucleated RBC 0.000 (0.0-0.012) K/mm3 Nucleated RBC % 0.0 (0.0-0.2) % ESR 52 H (0-20) mm/hr PT 22.3 H (11.1-14.7) Seconds INR 2.0 APTT 37.5 H (22.3-36.8) Seconds Sodium 136 L (137-145) mmol/L Potassium 3.4 (3.4-5.0) mmol/L Chloride 97 L (98-107) mmol/L Carbon Dioxide 31 H (22-30) mmol/L Anion Gap 8 (4-12) mmol/L BUN 57 H (7-17) mg/dL Creatinine 1.90 H (0.7-1.0) mg/dL Estim Creat Clear Calc 16 ml/min Estimated GFR 25 L (59 - ) Glucose 98 (65-110) mg/dL Calcium 9.4 (8.4-10.2) mg/dL Total Bilirubin 0.4 (0.2-1.3) mg/dL AST 37 H (14-36) U/L ALT 22 (6-35) U/L Alkaline Phosphatase 73 (38-126) U/L C-Reactive Protein < 0.5 (<1.0) mg/dL NT-Pro-B Natriuret Pep 1150 H (19.9-100) pg/mL Total Protein 7.4 (6.3-8.2) g/dL Albumin 4.2 (3.5-5.1) g/dL <Rebecca Romero PA-C - Last Filed: 10/15/24 10:06> Lab Results 10/14/24 Range/Units 18:15 WBC 7.1 (4.5-10.0) K/mm3 RBC 3.48 L (4.2-5.4) M/mm3 Hgb 9.9 L (12.0-15.0) g/dL Hct 31.2 L (37.0-47.0) % MCV 89.7 (80-100) fl MCH 28.4 (26-34) pg MCHC 31.7 L (32-36) g/dl RDW 14.7 H (11.5-14.5) % Plt Count 314 (150-375) k/mm3 MPV 10.0 (7.4-10.4) fl Immature Gran % (Auto) 0.1 (0-0.5) % Neut % (Auto) 52.3 (45.5-73.1) % Lymph % (Auto) 19.6 (18.3-44.2) % Weston % (Auto) 10.1 H (2.6-8.5) % Eos % (Auto) 17.1 H (0-4.4) % Baso % (Auto) 0.8 (0.2-1.2) % Lymph # (Auto) 1.40 (0.9-3.2) K/mm3 Weston # (Auto) 0.7 H (0.1-0.6) K/mm3 Eos # (Auto) 1.2 H (0-0.3) K/mm3 Baso # (Auto) 0.1 (0.0-0.1) K/mm3 Abs Immat Gran (auto) 0.01 (0.00-0.031) K/mm3 Absolute Neuts (auto) 3.7 (1.3-6.7) K/mm3 Absolute Nucleated RBC 0.000 (0.0-0.012) K/mm3 Nucleated RBC % 0.0 (0.0-0.2) % ESR 52 H (0-20) mm/hr PT 22.3 H (11.1-14.7) Seconds INR 2.0 APTT 37.5 H (22.3-36.8) Seconds Sodium 136 L (137-145) mmol/L Potassium 3.4 (3.4-5.0) mmol/L Chloride 97 L (98-107) mmol/L Carbon Dioxide 31 H (22-30) mmol/L Anion Gap 8 (4-12) mmol/L BUN 57 H (7-17) mg/dL Creatinine 1.90 H (0.7-1.0) mg/dL Estim Creat Clear Calc 16 ml/min Estimated GFR 25 L (59 - ) Glucose 98 (65-110) mg/dL Calcium 9.4 (8.4-10.2) mg/dL Total Bilirubin 0.4 (0.2-1.3) mg/dL AST 37 H (14-36) U/L ALT 22 (6-35) U/L Alkaline Phosphatase 73 (38-126) U/L C-Reactive Protein < 0.5 (<1.0) mg/dL NT-Pro-B Natriuret Pep 1150 H (19.9-100) pg/mL Total Protein 7.4 (6.3-8.2) g/dL Albumin 4.2 (3.5-5.1) g/dL <Shukri Ortiz MD - Last Filed: 10/14/24 22:07> Imaging Data Radiologist's impression: ITS Impressions Chest X-Ray 10/14/24 17:17 IMPRESSION: 1: NO ACUTE CARDIOPULMONARY DISEASE. Venous Doppler Study 10/14/24 17:28 IMPRESSION: 1: No lower extremity deep venous thrombosis. <JASON Torrez Filed: 10/15/24 10:06> Critical Care Time Critical Care Time Critical Care Time: No <JASON Torrez Last Filed: 10/15/24 10:06> Discharge Plan Discharge Clinical Impression: Cellulitis and abscess of right leg <JASON Torrez Filed: 10/15/24 10:06> Patient Disposition: Home <JASON Torrez Filed: 10/15/24 10:06> Condition: Stable <JASON Torrez Filed: 10/15/24 10:06> Instructions: Antibiotic Form, Cellulitis (ED) <JASON Torrez Filed: 10/15/24 10:06> Patient Language: Polish <JASON Torrez Filed: 10/15/24 10:06> Prescriptions: New doxycycline monohydrate 100 mg capsule 100 mg PO BID Qty: 14 0RF No Action bumetanide 1 mg tablet 1 mg PO DAILY ferrous sulfate [FeroSul] 325 mg (65 mg iron) tablet 325 mg PO DAILY fluconazole 150 mg tablet 150 mg PO DAILY triamterene-hydrochlorothiazid 37.5-25 mg capsule 1 cap PO DAILY pravastatin 10 mg tablet 10 mg PO DAILY metoprolol succinate 25 mg tablet extended release 24 hr 25 mg PO DAILY Xarelto 20 mg tablet 20 mg PO DAILY calcium carb, citrate, malate 250 mg calcium capsule 1,200 mg PO DAILY aspirin [Adult Aspirin Regimen] 81 mg tablet,delayed release (DR/EC) 81 mg PO DAILY potassium 75 mg tablet 575 mg PO DAILY loratadine 10 mg capsule 10 mg PO DAILY vitamin B complex Capsule 1 cap PO DAILY <JASON Torrez Last Filed: 10/15/24 10:06> Follow-up/Referrals: Carlene Luna DO [Physician, Family Practice] PHYSICIAN,FORECLOSURE HOME INSPECTOR [Primary Care Provider, Internal Medicine] <JASON Torrez Filed: 10/15/24 10:06>
[2024-10-14 18:07] VITALS: BP 146/42; PULSE 65; RESP 17; TEMP 36.4; O2SAT 99
[2024-10-14 18:11] VITALS: BP 146/42; PULSE 65; RESP 17; TEMP 36.4; O2SAT 100
[2024-10-14 18:26] LABS: Hematocrit 31.2 % (37.0-47.0); Hemoglobin 9.9 g/dL (12.0-15.0); Immature Granulocyte Percent A 0.1 % (0-0.5); Lymphocytes Absolute Auto 1.40 K/mm3 (0.9-3.2); Mean Corpuscular HGB Conc 31.7 g/dl (32-36); Mean Corpuscular Hemoglobin 28.4 pg (26-34); Mean Corpuscular Volume 89.7 fl (80-100); Nucleated Red Blood Cells Absolute Auto 0.000 K/mm3 (0.0-0.012); Nucleated Red Blood Cells Perc 0.0 % (0.0-0.2); Platelet Count Result 314 k/mm3 (150-375); Red Blood Count 3.48 M/mm3 (4.2-5.4); White Blood Count 7.1 K/mm3 (4.5-10.0)
[2024-10-14 18:39] LABS: Alanine Aminotransferase 22 U/L (6-35); Albumin Level 4.2 g/dL (3.5-5.1); Alkaline Phosphatase 73 U/L (38-126); Anion Gap 8 mmol/L (4-12); Aspartate Amino Transferase 37 U/L (14-36); Bilirubin,Total 0.4 mg/dL (0.2-1.3); Blood Urea Nitrogen 57 mg/dL (7-17); Calcium 9.4 mg/dL (8.4-10.2); Carbon Dioxide 31 mmol/L (22-30); Chloride 97 mmol/L (98-107); Estimated CRCL calculation 16 ml/min; Estimated Glomerular Filt Rate 25; Glucose 98 mg/dL (65-110); Potassium 3.4 mmol/L (3.4-5.0); Sodium 136 mmol/L (137-145); Total Protein 7.4 g/dL (6.3-8.2)
[2024-10-14 18:40] LABS: INR 2.0; Prothrombin Time 22.3 Seconds (11.1-14.7)
[2024-10-14 18:41] LABS: Partial Thromboplastin Time 37.5 Seconds (22.3-36.8)
[2024-10-14 18:46] LABS: CRP < 0.5 mg/dL (<1.0)
--- OUTSIDE RECORDS SUMMARY | 2024-10-14 18:51 | XMS_ITS | Clinical Summary ---
Author Organization [facility] [address] Address [address] [place] [address] Care Team Providers Care Oracle E Business Developer Name Role Phone FelisarobertoVenessa buck JUNE Primary Care Provider [phone] Allergies Active Allergy Reactions Criticality Noted Date [...] Description 08/28/2024 11:00 AM CDT Office Visit [facility] [address] [place] [address] Rachael Moreno NP Palpitations (Primary [...] 10/03/202307/2013 Influenza Vaccine (#1) 2024 Insurance MEDICARE [facility] MEDICARE SUPPLEMENT Member Subscriber Plan / Payer (Ef fective 2020-Present) Name:Dianne Delong Relation to Subscriber:Self Name:Dianne Delong Payer ID:[id number] Group ID:[id number] Type:COMMERCIAL Address: [facility] [id number] [place] [id number] Care Teams Oracle E Business Developer Relationship Specialty Start Date End Date Venessa Atkins NP [address] [place] [address] PCP - General Family Medicine 08/28/24
[2024-10-14 18:53] LABS: NT Pro B Type Natriuretic Pept 1150 pg/mL (19.9-100)
[2024-10-14 18:56] VITALS: BP 165/39; PULSE 63; RESP 14; O2SAT 100
[2024-10-14] MEDS: DOXYCYCLINE HYCLATE 100 MG TABLET PO (18:56)
[2024-10-14] MEDS: FLUCONAZOLE 150 MG TABLET PO (19:40)
[2024-10-14 20:20] VITALS: BP 143/59; PULSE 78; RESP 20; O2SAT 100
[2024-10-14 20:21] VITALS: BP 136/75; PULSE 95; RESP 18; O2SAT 95
== END 2024-10-14 20:24 | disposition home or self-care (01) ==
PROVIDERS: Physician Assistant; Emergency Provider Student in an Organized Health Care Education/Training Program
DX: L03.115 Cellulitis of right lower limb (principal); I48.91 Unspecified atrial fibrillation; I12.9 Hypertensive chronic kidney disease with stage 1 through stage 4 chronic kidney disease, or unspecified chronic kidney disease; N18.9 Chronic kidney disease, unspecified; E78.5 Hyperlipidemia, unspecified; D64.9 Anemia, unspecified; E87.1 Hypo-osmolality and hyponatremia; Z79.82 Long term (current) use of aspirin; Z79.01 Long term (current) use of anticoagulants; Z79.899 Other long term (current) drug therapy
CPT/HCPCS: 36415; 71046; 80053; 83880; 85025; 85610; 85652; 85730; 86140; 93970; 99284; A9270

== ENCOUNTER 2025-01-30 12:43 | Outpatient (CLI) | payer MEDICARE, SELFPAY ==
--- NOTE | ~2025-01-30 | US_ITS ---
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 Comparison: None Technique: Chirinos-scale and color Doppler images were obtained. Findings: KIDNEYS: Renal cortices are intact with no hydronephrosis. Right Kidney: Right kidney 8.6 x 3.4 x 3.8 cm, normal. Left Kidney: Left kidney 0.2 x 3.9 x 4.4 cm, there is a solid echogenic lesion within the mid pole measuring 1.2 x 1 cm but incompletely characterized. Bladder: The bladder is unremarkable. . Impression: 1. 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 Contrast-enhanced CT or MRI is recommended to further evaluate Reviewed, dictated and finalized at location P. ARCH ENVIRONMENTAL ENGINEER Impression: 1. 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 Contrast-enhanced CT or MRI is recommended to further evaluate
== END 2025-01-30 12:44 | disposition home or self-care (01) ==
PROVIDERS: PCP Family Medicine; Visit Provider Internal Medicine Nephrology
DX: I12.9 Hypertensive chronic kidney disease with stage 1 through stage 4 chronic kidney disease, or unspecified chronic kidney disease (principal); N18.4 Chronic kidney disease, stage 4 (severe)
CPT/HCPCS: 76770

== ENCOUNTER 2025-02-26 11:45 | Emergency (ER) | payer MEDICARE, SELFPAY ==
--- NOTE | 2025-02-26 11:50 | ED.EXTPRO ---
HPI - Extremity Problem General Chief complaint: Skin/Abscess/Foreign Body Stated complaint: possible cellulitis in legs Time Seen by Provider: 02/26/25 12:05 Source: patient and RN notes reviewed Mode of arrival: ambulatory Limitations: dementia History of Present Illness HPI Narrative: 84 year old female presents with concern for cellulitis. Reports she has history of cellulitis and chronically scratches her lower legs so she chronically has scabs on her lower legs and some open skin areas. Reports her left lower extremity is red, swollen and tender. She denies fever, chills, sweats. MD Complaint: extremity swelling Related Data Home Medications ?Medication ?Instructions ?Recorded ?Confirmed ?Last Taken ?Type bumetanide 1 mg tablet 1 mg PO DAILY 05/07/24 02/12/25 05/06/24 History ferrous sulfate 325 mg (65 mg 325 mg PO DAILY 05/07/24 02/12/25 05/06/24 History iron) tablet (FeroSul) rivaroxaban 20 mg tablet (Xarelto) 20 mg PO DAILY 05/07/24 02/12/25 05/06/24 History vitamin B complex 1 cap PO DAILY 05/07/24 02/12/25 05/06/24 History calcium carb, citrate, malate 650 mg PO DAILY 10/17/24 02/12/25 Unknown History potassium 75 mg tablet 90 mg PO DAILY 10/17/24 02/12/25 Unknown History loratadine 10 mg tablet (Claritin) 10 mg PO DAILY 12/23/24 02/12/25 Unknown History Allergies Allergy/AdvReac Type Severity Reaction Status Date / Time codeine Allergy Rash Verified 02/12/25 14:58 Sulfa (Sulfonamide Allergy Rash Verified 02/12/25 14:58 Antibiotics) Review of Systems Review of Systems: CONSTITUTIONAL: Denies malaise, chills, sweats, or fever. EYES: Denies redness, or discharge. ENT: Denies rhinorrhea, congestion, swollen lips, swollen tongue CARDIOVASCULAR: Denies chest pain, palpitations, or edema. RESPIRATORY: Denies cough or dyspnea. GASTROINTESTINAL: Denies abdominal pain, nausea, vomiting SKIN: Reports redness, swelling an open sores on left lower leg. Denies purulent drainage, vesicles, bullae, numbness, pain beyond proportion MUSCULOSKELETAL: Denies joint pain or myalgia. NEUROLOGIC: Denies headache. All systems reviewed & are unremarkable except as noted in HPI and below PMFSH Past Medical History Medical History Onychomycosis Heart failure CKD (chronic kidney disease), stage IV Afib Hyperlipidemia Hypertension Family History Family History Father Heart disease Mother Breast cancer Cerebrovascular accident Sibling Breast cancer Social History Social History Smoking status: Never smoker Alcohol intake: never Substance use: never Lack of Transportation: No Lack of Food: Never True Current Housing: I Have Housing Concerned About Future Housing: No Difficulty Paying Gas/Electric Bills: No Difficulty Paying for Meds: No Currently Unemployed: No Education: Bachelor's Degree Difficulty w/ Childcare or Family Care: No Spiritual care concerns: No Comments At time of signature, agree with nursing past medical, surgical, social and family history. There is no relevant family history pertinent to the presenting complaint Exam Narrative: GENERAL: Well-appearing, well-nourished, and in no acute distress. HEAD: Normocephalic, atraumatic. EYES: PERRLA, conjunctivae clear ENT: Mucous membranes moist. NECK: Supple. No lymphadenopathy CHEST: Clear to auscultation. No respiratory distress. HEART: Regular rate and rhythm. SKIN: Warm, dry. Erythema, induration, tenderness, warmth with sharp margins noted the left lower extremity. No vesicles, bullae, necrosis, ecchymosis, crepitus noted. Multiple sores noted to bilateral lower legs in various stages of healing NEURO: Alert and oriented x3. PSYCH: Normal mood and affect Course Course Emergency Course: Patient reports she gets yeast infections when she takes antibiotics Patient is aware of diagnosis, understands and agrees to treatment plan. Anticipatory guidance given. Patient agrees to follow-up as directed and is aware of reasons to seek care at the emergency department. Portions of this record may have been created with voice recognition software Level of Care: [facility] Visit MDM Differential Diagnosis Differential Diagnosis: I evaluated this patient in the [facility] care. History is obtained from patient who is an independent historian and physical exam was performed.? Available medical records were reviewed. ? Exam findings and relevant testing show no acute concerns or changes; patient is non-toxic appearing and is in no distress. ? Stasis dermatitis, lymphedema, DVT, gout, thrombophlebitis, necrotizing fasciitis, erysipelas, insect bite, fungal infection Patient presentation of erythema, tenderness, warmth, induration is consistent with cellulitis. No fluctuation, no drainage, no pain out of proportion. Vital signs normal. Pain manageable with OTC medications. Differential diagnosis and treatment plan were discussed with the patient. Patient agrees with discussion and after shared medical decision making agrees with plan of care. All questions were answered to the patient's satisfaction. Patient is appropriate for outpatient treatment and follow-up. Discharge Plan Discharge Clinical Impression: Cellulitis Patient Disposition: Home Condition: Stable Instructions: Antibiotic Form, Cellulitis (ED) Additional Instructions: Please follow up with your Primary Care Doctor within 48-72 hours - call for an appointment. Rest and elevate affected area; apply moist heat 3-4 times daily for 10-15 minutes. Take Motrin 600mg every 8 hours with food for pain. Please take Antibiotics as directed. You can apply Aquaphor or Vaseline under compression stockings to help sooth skin and keep stockings from sticking to the skin. If you experience any worsening redness, swelling, streaking (red lines), fever or chills please go to the ER Patient Language: Venezuelan Prescriptions: New fluconazole 150 mg tablet 150 mg PO Q48H 1 Days Qty: 1 0RF Rx Instructions: take one dose now, and a second dose if symptoms remain in 48 hours cephalexin 500 mg capsule 500 mg PO QID 10 Days Qty: 40 0RF No Action loratadine [Claritin] 10 mg tablet 10 mg PO DAILY sertraline 25 mg tablet 25 mg PO DAILY Qty: 30 1RF bumetanide 1 mg tablet 1 mg PO DAILY ferrous sulfate [FeroSul] 325 mg (65 mg iron) tablet 325 mg PO DAILY Xarelto 20 mg tablet 20 mg PO DAILY vitamin B complex Capsule 1 cap PO DAILY calcium carb, citrate, malate 250 mg calcium capsule 650 mg PO DAILY potassium 75 mg tablet 90 mg PO DAILY pravastatin 10 mg tablet 10 mg PO DAILY Qty: 90 1RF metoprolol succinate 25 mg tablet extended release 24 hr 25 mg PO DAILY Qty: 90 1RF spironolactone 25 mg tablet See Rx Instructions .ROUTE .COMPLEX Qty: 90 0RF Dose Instruction: Take 1 tablet by mouth once daily Rx Instructions: Take 1 tablet by mouth once daily Follow-up/Referrals: Carlene Luna DO [Primary Care Provider, Family Practice] Time of Disposition: 12:19
[2025-02-26 11:56] VITALS: BP 115/58; PULSE 75; RESP 16; TEMP 36.2; O2SAT 100
== END 2025-02-26 12:29 | disposition home or self-care (01) ==
PROVIDERS: Emergency Provider Nurse Practitioner; PCP Family Medicine
DX: L03.116 Cellulitis of left lower limb (principal); I13.2 Hypertensive heart and chronic kidney disease with heart failure and with stage 5 chronic kidney disease, or end stage renal disease; N18.5 Chronic kidney disease, stage 5; I50.9 Heart failure, unspecified; I48.91 Unspecified atrial fibrillation; E78.5 Hyperlipidemia, unspecified; Z79.01 Long term (current) use of anticoagulants
CPT/HCPCS: 99213; G0463